=== PATIENT | male | born 1990 | race Caucasian/White ===

== ENCOUNTER → 2016-12-27 | Outpatient (CLI) | payer OTHER ==
[~2016-12-27] MED LIST: ADALAT CC60 MG PO; ADDERALL 10 MG10 MG PO; ADDERALL20 MG PO; ATIVAN0.5 MG PO; BACTROBAN CREAM15 GM PO; CARAFATE1 G1 PO; CIPRO500 MG PO; CLARITIN10 MG PO; CLINDAMYCIN HC300 MG PO; CLONIDINE0.2 MG PO; CORBAN MAGNESI400 MG PO; COREG12.5 M1 PO; CRESTOR5 MG PO; DELTASONE5 MG PO; DIFLUCAN100 MG PO; FERROUS SULFAT325 M1 PO; FLEXERIL10 MG PO; FOLIC ACID1 MG PO; GENTAMICIN3 MG/ML OP; GLIPIZIDE XL2.5 MG PO; GLUCOPHAGE500 MG PO; HYDRALAZINE10 MG PO; HYDROCODONE BIT1 T11 PO; HYZAAR 50/12.5M1 TAB PO; ISRADIPINE5 MG PO; K-DUR 20MEQ20 MEQ PO; KEPPRA500 MG PO; LASIX40 MG PO; LISINOPRIL10 MG PO; LISINOPRIL20 MG PO; MAGNESIUM OXID400 MG PO; MULTIVITAMIN1 CTB PO; MYFORTIC360 MG PO; Magnesium Oxid400 MG PO; NAPROSYN500 MG PO; NEXIUM40 MG PO; NIFEDIPINE ER60 MG PO; NIFEDIPINE60 MG PO; OSCAL,OYSTER S500 MG PO; PHOS LO667 MG PO; PRAVACHOL20 MG PO; PRAVACHOL40 MG PO; PREDNISONE10 MG PO; PREDNISONE25 MG PO; PREDNISONE5 MG PO; PREVACID30 M1 PO; PREVACID30 MG PO; PRILOSEC40 M1 PO; PROGRAF1 MG PO; PROGRAF5 MG PO; PROTONIX40 MG PO; RANITIDINE150 MG PO; REGLAN10 MG PO; RENA-VITE1 TAB PO; TRAMADOL HCL50 MG PO; TYLENOL325 M1 PO; VICODIN 5/500 505 MG PO; VITAMIN D1000 IU PO; VITAMIN D2000 IU PO; ZOFRAN ODT4 MG SL
== END | disposition home or self-care (01) ==
LOC: RAD 17:39
DX: J90 Pleural effusion, not elsewhere classified (principal); Z90.2 Acquired absence of lung [part of]

== ENCOUNTER 2017-02-07 19:07 | Emergency (ER) | payer OTHER ==
[~2017-02-07] VITALS: Ht 162.5 cm; Wt 65.8 kg
--- NOTE | ~2017-02-07 | EKG ---
[place], [place] ELECTROCARDIOGRAM REPORT NAME: JANICE COYLE UNIT #: [id number] ROOM: DOCTOR: DUTCH STANLEY MD BIRTHDATE: [birth year] DOS: 02/07/2017 TIME: 1926 hours. FINDINGS: 1. Normal sinus rhythm at rate 82 with first-degree AV block. 2. Right axis deviation with possible right ventricular hypertrophy. 3. RSR prime in V1 and V2. 4. Abnormal electrocardiogram. DUTCH STANLEY MD CM:EKGRPT:ELECTROCARDIOGRAM REPORT [id number] DUTCH STANLEY MD
[2017-02-07 19:45] LABS: BASO # 0.2 10*3/uL (0.0-0.1); BASO % 2.4 % (0.0-1.0); EOS # 0.1 10*3/uL (0.0-0.4); EOS % 0.6 % (1.0-4.0); HEMATOCRIT 43.3 % (42.0-52.0); HEMOGLOBIN 13.5 g/dl (14.0-18.0); LYMPH # 1.9 10*3/uL (1.3-4.4); LYMPH % 22.5 % (27.0-41.0); MEAN CORPUSCULAR HGB 29.6 pg (27.0-31.0); MEAN CORPUSCULAR HGB CONC 31.2 g/dl (33.0-37.0); MEAN PLATELET VOLUME 10.3 fl (9.6-12.3); MONO # 0.6 10*3/uL (0.1-1.0); MONO % 7.3 % (3.0-9.0); NEUT # 5.5 10*3/uL (2.3-7.9); NEUT % 66.8 % (47.0-73.0); PLATELET COUNT AUTOMATED 319 10*3/uL (130-400); RED BLOOD COUNT 4.56 10*6/uL (4.50-5.90); RED CELL DISTRI WIDTH 15.7 % (0-14.5); WHITE BLOOD COUNT 8.3 10*3/uL (4.8-10.8)
[2017-02-07] MEDS ORDERED: NYSTATIN100000 U/M PO (19:45)
[2017-02-07] MEDS ORDERED: PROVENTIL0.09 MG/A1 INH (19:47)
[2017-02-07 19:55] LABS: INTERNATIONAL NORM RATIO 1.4 (2.0-3.5); PROTHROMBIN TIME 14.8 SECONDS (9.0-12.4)
[2017-02-07 20:02] LABS: ALBUMIN 3.8 gm/dl (3.1-4.5); ALKALINE PHOSPHATASE 164 U/L (45-117); BILIRUBIN, TOTAL 0.6 mg/dl (0.2-1.0); BUN 36 mg/dl (7-24); C-REACTIVE PROTEIN 1.93 MG/DL (0-0.3); CARBON DIOXIDE 16 mmol/L (21-32); CHLORIDE 100 mmol/L (98-107); CPK 103 U/L (39-308); EST GLOM FILT AFRICAN AMERICAN 8 ml/min; MAGNESIUM 2.4 mg/dL (1.5-2.1); POTASSIUM 5.3 mmol/L (3.5-5.1); SGOT/AST 31 IU/L (3-35); SGPT/ALT 13 U/L (12-78); SODIUM 139 mmol/L (136-145); TOTAL PROTEIN 7.4 gm/dL (6.4-8.2)
[2017-02-07 20:05] LABS: GLUCOSE 84 mg/dL (65-99); TROPONIN I < 0.015 ng/ml (<0.045)
[2017-02-07] MEDS ORDERED: FLONASE ALLERG9.9 ML NAS (20:15)
[2017-02-07] MEDS ORDERED: CLARITIN10 MG PO (20:16)
[2017-02-07] MEDS ORDERED: APRESOLINE10 MG PO (20:18)
[2017-02-07 21:42] LABS: LA>2 REFLEX 2 HR DRAW NOW
== END 2017-02-07 22:30 | disposition short-term general hospital (02) ==
LOC: ED 19:07
PROVIDERS: Student in an Organized Health Care Education/Training Program
DX: R56.9 Unspecified convulsions (principal); F32.9 Major depressive disorder, single episode, unspecified; G40.909 Epilepsy, unspecified, not intractable, without status epilepticus; I12.0 Hypertensive chronic kidney disease with stage 5 chronic kidney disease or end stage renal disease; N18.6 End stage renal disease; E11.65 Type 2 diabetes mellitus with hyperglycemia; F17.200 Nicotine dependence, unspecified, uncomplicated; Z79.899 Other long term (current) drug therapy

== ENCOUNTER → 2017-04-04 | Outpatient (CLI) | payer OTHER ==
[~2017-04-04] MED LIST changes: +APRESOLINE10 MG PO; +FLONASE ALLERG9.9 ML NAS; +NYSTATIN100000 U/M PO; +PROVENTIL0.09 MG/A1 INH
== END | disposition home or self-care (01) ==
LOC: US 13:30
DX: S20.211A Contusion of right front wall of thorax, initial encounter (principal); X58.XXXA Exposure to other specified factors, initial encounter; Y93.89 Activity, other specified; Y92.89 Other specified places as the place of occurrence of the external cause; Y99.8 Other external cause status

== ENCOUNTER → 2017-09-21 | Outpatient (CLI) | payer OTHER | END | disposition home or self-care (01) | LOC: RAD 14:51 | DX: Q78.8 Other specified osteochondrodysplasias (principal) ==

== ENCOUNTER 2017-10-05 12:21 | Emergency (ER) | payer OTHER ==
[~2017-10-05] VITALS: Wt 68.0 kg
[2017-10-05] MEDS ORDERED: ATIVAN1 MG PO (12:47)
[2017-10-05] MEDS ORDERED: TRAMADOL HCL50 MG PO (12:47)
[2017-10-05] MEDS ORDERED: Ventolin 02.5 MG/3 M INH (12:48)
[2017-10-05] MEDS ORDERED: PROAIR HFA8.5 GM INH (12:49)
[2017-10-05] MEDS ORDERED: OMEPRAZOLE40 MG PO (12:50)
[2017-10-05] MEDS ORDERED: NIFEDICAL PO (12:50)
[2017-10-05] MEDS ORDERED: CARVEDILOL25 MG PO (12:50)
[2017-10-05] MEDS ORDERED: Magnesium Oxid400 MG PO (12:51)
[2017-10-05] MEDS ORDERED: CLONIDINE0.3 MG PO (12:51)
[2017-10-05] MEDS ORDERED: PRAVACHOL20 MG PO (12:51)
[2017-10-05] MEDS ORDERED: 24 HOUR ALLER15.8 ML NAS (12:53)
[2017-10-05] MEDS ORDERED: SINGULAIR10 M1 PO (12:53)
[2017-10-05] MEDS ORDERED: CALCIUM ACETAT667 M2 PO (12:54)
[2017-10-05] MEDS ORDERED: HYDRALAZINE HC100 MG PO (12:55)
[2017-10-05] MEDS ORDERED: LEVETIRACETAM500 MG PO (12:56)
[2017-10-05] MEDS ORDERED: LISINOPRIL40 MG PO (12:57)
[2017-10-05] MEDS ORDERED: PROMETHAZI6.25 MG/3 PO (12:57)
[2017-10-05 13:22] LABS: BASO # 0.2 10*3/uL (0.0-0.1); BASO % 2.9 % (0.0-1.0); EOS # 0.3 10*3/uL (0.0-0.4); EOS % 4.2 % (1.0-4.0); HEMATOCRIT 28.5 % (42.0-52.0); HEMOGLOBIN 9.2 g/dl (14.0-18.0); LYMPH # 1.5 10*3/uL (1.3-4.4); LYMPH % 21.5 % (27.0-41.0); MEAN CELL VOLUME 91.3 fl (80.0-94.0); MEAN CORPUSCULAR HGB 29.5 pg (27.0-31.0); MEAN CORPUSCULAR HGB CONC 32.3 g/dl (33.0-37.0); MEAN PLATELET VOLUME 8.7 fl (9.6-12.3); MONO # 0.7 10*3/uL (0.1-1.0); MONO % 9.8 % (3.0-9.0); NEUT # 4.2 10*3/uL (2.3-7.9); PLATELET COUNT AUTOMATED 458 10*3/uL (130-400); RED BLOOD COUNT 3.12 10*6/uL (4.50-5.90); RED CELL DISTRI WIDTH 15.9 % (0-14.5); WHITE BLOOD COUNT 6.9 10*3/uL (4.8-10.8)
[2017-10-05 13:39] LABS: ALBUMIN 3.3 gm/dl (3.1-4.5); CREATININE 8.05 mg/dL (0.70-1.30); POTASSIUM 4.2 mmol/L (3.5-5.1); TOTAL PROTEIN 7.6 gm/dL (6.4-8.2)
== END 2017-10-05 15:25 | disposition home or self-care (01) ==
LOC: ED 12:21
PROVIDERS: Emergency Medicine
DX: R18.8 Other ascites (principal); I12.0 Hypertensive chronic kidney disease with stage 5 chronic kidney disease or end stage renal disease; E11.22 Type 2 diabetes mellitus with diabetic chronic kidney disease; N18.6 End stage renal disease; G40.909 Epilepsy, unspecified, not intractable, without status epilepticus; E11.649 Type 2 diabetes mellitus with hypoglycemia without coma; Z79.899 Other long term (current) drug therapy; Z99.2 Dependence on renal dialysis; Z79.4 Long term (current) use of insulin

== ENCOUNTER → 2018-02-13 | Outpatient (CLI) | payer OTHER ==
[~2018-02-13] MED LIST changes: +24 HOUR ALLER15.8 ML NAS; +ATIVAN1 MG PO; +CALCIUM ACETAT667 M2 PO; +CARVEDILOL25 MG PO; +CLONIDINE0.3 MG PO; +HYDRALAZINE HC100 MG PO; +LEVETIRACETAM500 MG PO; +LISINOPRIL40 MG PO; +NIFEDICAL PO; +OMEPRAZOLE40 MG PO; +PROAIR HFA8.5 GM INH; +PROMETHAZI6.25 MG/3 PO; +SINGULAIR10 M1 PO; +Ventolin 02.5 MG/3 M INH
== END | disposition home or self-care (01) ==
LOC: US 06:30
DX: R10.12 Left upper quadrant pain (principal)

== ENCOUNTER → 2018-02-21 | Outpatient (CLI) | payer OTHER | END | disposition home or self-care (01) | LOC: NM 13:00 | DX: R11.0 Nausea (principal) ==

== ENCOUNTER 2018-05-06 17:45 | Inpatient (IN) | payer OTHER ==
[~2018-05-06] VITALS: Ht 165.1 cm; Wt 73.6 kg
--- NOTE | ~2018-05-06 | PR ---
[place], [place] PROGRESS NOTE NAME: JANICE COYLE UNIT #: [id number] ROOM: 415 DOCTOR: AVELINA KELLY DO BIRTHDATE: [birth year] DOS: 05/09/2018 SUBJECTIVE: The patient was seen and evaluated today. He was resting comfortably. Denies abdominal pain. Says his breathing is okay. He denies headache, double vision, chest pain, cough, abdominal pain, nausea, vomiting, diarrhea, hematemesis, hematochezia, melena. OBJECTIVE: VITAL SIGNS: Temperature 98.2, heart rate 72, respirations 18, blood pressure 136/80, pulse ox 98% on room air. HEENT: Head is atraumatic. Eyes nonicteric. NECK: Supple. CARDIOVASCULAR: S1, S2 audible. LUNGS: Decreased breath sounds on the left side. Right lung has mild decrease in breath sounds at the bases. Right lung is clear. ABDOMEN: Improvement in the distention. Fluid wave is present. EXTREMITIES: No acute edema. MUSCULOSKELETAL: No acute deformities. CENTRAL NERVOUS SYSTEM: Cranial nerves 2-12 intact. SKIN: No obvious lesions or rashes. LABORATORY DATA: CBC from today: WBC 4.5, hemoglobin 9.8, hematocrit 30.5, platelet count 328,000. CMP today, sodium 137, potassium 4.4, chloride 98, CO2 of 31, BUN 29, creatinine 8.27. He is due for dialysis today. AST 13, ALT 7, alkaline phosphatase 112. Albumin today is 2.4. Chest x-ray yesterday showed a large left pleural fluid. IMPRESSION: 1. Persistent large pleural effusion after paracentesis. 2. Ascites. 3. End-stage renal failure, on hemodialysis. 4. History of focal segmental glomerulosclerosis. 5. Gastritis. 6. Hiatal hernia. PLAN AND MANAGEMENT: Antibiotics have been discontinued as spontaneous bacterial peritonitis was excluded. Ultrasound performed at bedside showed a large pleural effusion on the left. Thoracentesis was performed at the bedside with a total of 1300 mL of pleural fluid out. Pleural fluid was sent for analysis. Continue all other current management at this time. GI is following the patient's abdominal complaints. Any changes in treatment plan will be arranged following results of testing. Avelina Kelly DO [place], [place] PROGRESS NOTE NAME: JANICE COYLE UNIT #: [id number] ROOM: [facility] DOCTOR: AVELINA KELLY DO BIRTHDATE: [birth year] OSORIO TROY MD CM:PNKELY [id number] AVELINA KELLY DO 05/10/18 0240 interface
--- NOTE | ~2018-05-06 | CON ---
[place], [place] REPORT OF CONSULTATION NAME: JANICE COYLE UNIT #: [id number] ROOM: 415 DOCTOR: OSORIO LABOY MD BIRTHDATE: [birth year] DOS: 05/07/2018 PULMONARY CONSULTATION EVALUATION This is a pulmonary addendum note. The patient was independently seen and examined in a [id number] encounter with the date of 05/07/2018. History was taken. Physical examination performed. The labs were reviewed. The assessment and management on today's note was completed personally in today's visit. The note done by the medical scheduler and approved as well. CONSULTATION REQUESTED BY: Dr. Red Lester. REASON FOR CONSULTATION: For the assessment of the pleural fluid on the left side. HISTORY OF PRESENT ILLNESS: This is a 27-year-old male patient noted extremely poor historian. The patient does not remember much of his symptoms, only complained by the patient was described as diffuse abdominal pain, which has been noted with gradual increased abdominal distention. The patient had been admitted to the hospital for further medical management. He has not been noted with any symptoms of chest pain. REVIEW OF SYSTEMS: Completed by the medical scheduler, reviewed, refer to that. PAST MEDICAL HISTORY: 1. The patient was known with end-stage renal failure on hemodialysis every Sunday, and Saturdays. 2. Anemia of chronic kidney disease. 3. History of bronchial asthma, severity unknown. 4. History of depression. 5. 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 6. History of focal segmental glomerulosclerosis. 7. Type 2 diabetes mellitus. 8. Essential hypertension. 9. Seizure disorder. 10. History reported for pulmonary hypertension on echocardiogram. PAST SURGICAL HISTORY: The patient noted as VATS procedure that was done on the right side in [facility]. The patient's medical record personally reviewed. It was noted nonmalignant with a significant amount of lymphocytes. The patient noted with chronic inflammatory changes without any evidence of malignancy. The surgery was done for the patient in [facility] on 12/12/2017 as well as the pleurodesis was done for that as well. Chest tube insertion that was done on 12/11/2017 for the large right pleural effusion. Creation of fistula for the hemodialysis. SOCIAL HISTORY: The patient has not reported any history of tobacco, alcohol or [place], [place] REPORT OF CONSULTATION NAME: JANICE COYLE UNIT #: [id number] ROOM: 415 DOCTOR: WOODROW LAIRD MD,OSORIO BIRTHDATE: [birth year] illicit drug use in the past, not . FAMILY HISTORY: The patient reported for diabetes, hypothyroidism, and essential hypertension. MEDICATIONS: Current medications administered noted use of Keppra, folic acid, calcium acetate, Flonase, lisinopril, simvastatin, albuterol sulfate with nebulizer t.i.d., omeprazole, nifedipine, minoxidil, hydralazine, Singulair, clonidine, Coreg, Dulera, DuoNeb and other p.r.n. medications. DRUG ALLERGIES: The patient was noted as allergies: 1. EFFEXOR. 2. WELLBUTRIN. 3. ZOLOFT. 4. CELEXA. PHYSICAL EXAMINATION: GENERAL: This is a 27-year-old male patient who is currently sitting on his bed without acute distress this morning of assessment. Height of 5 feet 5 inches, weight 262 pounds, BMI 27. VITAL SIGNS: For the patient which were recorded showed normal temperature, respiratory rate 18-20, heart rate 77-83, blood pressure 138/81-141/81. Pulse oxygen saturation of the patient on room air 97% saturation. HEENT: Shows head was atraumatic, palor noted of the face. NECK: Supple. CARDIOVASCULAR: S1, S2 audible. LUNGS: Clear breath sounds noted in the right side with a severe reduced breath sounds noted in the mid to lower portion of the large left lung. There were no crackles or wheezing heard. ABDOMEN: Noted with obesity and ascites. Superficial tendon noted. Bowel sounds are present. EXTREMITIES: Noted with chronic changes. SKIN: No lesions or rashes. CENTRAL NERVOUS SYSTEM: Limited. SKIN: No focal deficit. MUSCULOSKELETAL: No deformity. LABORATORY DATA: CBC was done yesterday on admission, normal WBC count, hemoglobin 10.4, platelet count were normal. PT/PTT were noted, INR 1.3, PTT 37. CMP that was done on 05/06/2018, BUN 35, creatinine 8.82. CBC that was done this morning essentially remains unchanged since yesterday. The PTT, PT, INR was noted 1.3. CMP this morning, BUN 38, creatinine 9.23. Ultrasound of the abdomen was completed this morning was reported by the radiologist report as moderate to large intra-abdominal ascites. The patient noted with a pleural fluid as well. End-stage renal failure findings were noted of kidneys with the decreased echogenicity. Chest x-ray noted with moderate to large left pleural fluid noted. Right lung appear to be clear of any acute infiltration. Lower portion CT of the thorax was also assessed with a CT scan of the abdomen and pelvis, which was done in this patient was noted with findings of abdominal ascites with moderate to large left pleural fluid, patient was also noted with [place], [place] REPORT OF CONSULTATION NAME: JANICE COYLE UNIT #: [id number] ROOM: 415 DOCTOR: OSORIO LABOY MD BIRTHDATE: [birth year] compression atelectasis, minimal right pleural fluid was noted. IMPRESSION: 1. The patient will be currently admitted to the hospital noted progressive ascites, abdominal pain, rule out spontaneous bacterial peritonitis. Etiology is ascites, who is unclear at this time related to liver problems or other etiologies to be considered. 2. The patient with incidental finding of a large left pleural fluid with possibility of pleural fluid, which has been tracking from the ascites with left fragment effect. He would be considered in differential diagnosis with other primary cause of pleural fluid be considered as a transudative and exudative effusions. The patient has been noted with lymphocyte predominant pleural fluid in the right side, underwent VATS procedure. Successful resolution of the pleural formation on the right side in 11/2017 in [facility]. 3. History of focal segmental glomerulosclerosis. 4. End-stage renal failure, hemodialysis as well. 5. History of bronchial asthma without evidence of acute exacerbation. 6. Mild coagulopathy related to the liver dysfunction. PLAN OF MANAGEMENT: The patient will be ordered for paracentesis. The patient to rule out SBP empirical treatment, antibiotic will be recommended. After ascitic fluid removed, it will be analyzed for malignancy and other reasons as well. The pleural fluid deferred at this time until the ascites improves. If necessary, the patient could have either thoracentesis or chest tube insertion, but most likely may require another surgical intervention to be done in another hospital with the help of surgery as video-assisted thoracoscopy. Other supportive therapy, plan of management at this time to be continued. Other supportive plan of treatment is ordered as in progress will be continued. Usual care and other plan of therapies and care. OSORIO TROY MD CM:CONSTR:REPORT OF CONSULTATION 1225 06/21/18 0742 interface
--- NOTE | ~2018-05-06 | PROC NOTE ---
[place], [place] PROCEDURE NOTE NAME: JANICE COYLE UNIT #: [id number] ROOM: 415 DOCTOR: WOODROW LAIRD MD,OSORIO BIRTHDATE: [birth year] DOS: 05/09/2018 PROCEDURE: Left thoracentesis, ultrasound guidance. PREOPERATIVE DIAGNOSIS: Large left pleural effusion. POSTOPERATIVE DIAGNOSIS: Removal of 1300 mL pleural fluid left pleural space without any difficulty. COMPLICATIONS: None. PROCEDURE DESCRIPTION: Informed consent obtained for the patient. The patient was placed in sitting position. The ultrasound of the chest was already performed. The site of thoracentesis after marking the site of thoracentesis, left posterior chest wall. Skin was cleaned with chlorhexidine solution. Local anesthetic was administered in the skin intercostal space. During admission of local anesthetic, a small amount of fluid was aspirated. After that small incision given in the skin. [place] thoracentesis catheter introduced in the incision into the pleural space. The pleural fluid was obtained with initial sample about 50 mL, remaining fluid was drained in the vacuum bottle. A total of 1300 mL pleural fluid was collected. Fluid appeared to be mildly romario colored. Procedure well tolerated by the patient. Chest x-ray done postprocedure does have a pneumothorax with small residual area of atelectasis with possibility of remaining small left pleural effusion as well. Pleural fluid sent for all the appropriate testing. OSORIO TROY MD CM:PROCNOTE:PROCEDURE NOTE [id number] OSORIO LAIRD MD
--- NOTE | ~2018-05-06 | CON ---
[place], [place] REPORT OF CONSULTATION NAME: JANICE COYLE UNIT #: [id number] ROOM: 415 DOCTOR: ALLY COFFEY MD BIRTHDATE: [birth year] DOS: 05/08/2018 GASTROENDOSCOPIC CONSULTATON HISTORY OF PRESENT ILLNESS: This is a 27-year-old patient who has presented with multiple medical problems, among which has been his pleural effusion; ascites; and dialysis dependency on Sunday, , Saturdays; abdominal distention obviously; and GI symptomatology of nausea and vomiting postprandially and I have been asked for assessment of the patient in this regard. PAST MEDICAL HISTORY: Associated with chronic renal disease, bronchitis, depression, diabetes mellitus, hypertension, seizure disorder, pleural effusion, ascites formation as new findings, hypercholesterolemia as well as systemic hypertension. PAST SURGICAL HISTORY: History of VATS, history of fistulas in the arm for dialysis. SOCIAL HISTORY: Nonsmoker, nonalcohol consumer. FAMILY HISTORY: Hypothyroidism and diabetes. ALLERGIES: WELLBUTRIN, EFFEXOR, ZOLOFT, AND CELEXA. MEDICATIONS: List reviewed. The patient has been on PPI therapy. REVIEW OF SYSTEMS: HEENT: Denies double vision, blurred vision. RESPIRATORY: Denies acute shortness of breath; however, chronically short of breath. CARDIOVASCULAR: Denies chest pain. DIGESTIVE SYSTEM: Nausea and vomiting postprandially. Ascites formation. PHYSICAL EXAMINATION: HEENT: Head normocephalic, nontraumatic. Eyes: Pupils round, reactive. Sclerae nonicteric. Conjunctivae pink. Mouth and buccal mucosa benign, old characteristics of chronic renal disease the patient. NECK: Supple, no thyromegaly. CHEST: Symmetric anatomy, equal expansion, reduced air entry in general. HEART: Normal sinus rhythm, no gallop, no murmur. ABDOMEN: Evidence of ascites. Bowel sounds present. No pulsatile mass. No hepato-organomegaly can be elicited. EXTREMITIES: No cyanosis, no pedal edema in the lower extremity; however, upper extremity fistula adverse effect with a venous engorgement on the surface of skin can be seen. NEUROLOGIC: Alert, oriented to time, place, person. Sensory, motor intact. Cranial nerves 2-12 intact. LABORATORY AND DIAGNOSTIC DATA: Her last chest x-ray, showed a left pleural [place], [place] REPORT OF CONSULTATION NAME: JANICE COYLE UNIT #: [id number] ROOM: 415 DOCTOR: ALEXX GOLDBERG,ALLY BIRTHDATE: [birth year] effusion, multiple small sclerotic densities suspected in the bones. Comprehensive metabolic panel: Creatinine 6.3. Dialysis dependence. Electrolytes balanced. Protein and albumin low at 5.8 and 2.5 respectively. Blood cultures, body fluid, many white blood cells. CBC: White blood cell 5, H and H of 10 and 31, platelet count 300+. All has been noticed. Amylase less than 3. Ultrasound paracentesis has been removed already more than 6400 mL of fluid from the left lung. CT scan of the abdomen and pelvis has been reviewed. IMPRESSION: Generalized anasarca, diffuse gastric and small bowel wall thickening, pleural effusion that we knew about and numerous sclerotic lesions throughout the skeleton as noticed. Hemoglobin A1c less than 3.5 and this patient has initial H and H on admission and 31. PLAN AND DISCUSSION: Abnormal CT scan of the abdomen and gastric pouch with presence of ascites in addition to thickening of the gastric pouch in addition to symptomatology of nausea and vomiting postprandial. Therefore, we are going to consider EGD for him today. OTHER ADJUNCTIVE DIAGNOSES: As outlined, past medical and surgical history and we will comment after endoscopy is done and biopsies obtained. ALLY COFFEY MD CM:CONSTR:REPORT OF CONSULTATION 1057 05/22/18 0714 interface
--- NOTE | ~2018-05-06 | PR ---
[place], [place] PROGRESS NOTE NAME: JANICE COYLE UNIT #: [id number] ROOM: 415 DOCTOR: AVELINA KELLY DO BIRTHDATE: [birth year] DOS: 05/08/2018 SUBJECTIVE: The patient was seen and evaluated today. He was resting comfortably in bed. He did have paracentesis performed yesterday to rule out SBP. He also was dialyzed yesterday. He minimally engages in conversation, but reports no complaints at this time. He denies any symptoms of headache, lightheadedness, chest pain, shortness of breath, abdominal pain, nausea, vomiting or diarrhea. He states that he is feeling better. OBJECTIVE: VITAL SIGNS: Temperature 98.3, heart rate 81, respirations 20, blood pressure 132/74, pulse ox is 96% on room air. HEENT: Head is atraumatic. Eyes nonicteric. NECK: Supple. CARDIOVASCULAR: S1, S2 is audible. Systolic murmur present. LUNGS: Diminished breath sounds on the left. Lungs are clear to auscultation. ABDOMEN: Fluid wave much decreased from yesterday. Not as distended. No tenderness on palpation. Bowel sounds present. EXTREMITIES: No acute edema. SKIN: Visible skin, no lesions or rashes. CENTRAL NERVOUS SYSTEM: Cranial nerves 2-12 intact. LABORATORY DATA: CBC: White blood cells 5.2, hemoglobin 10, hematocrit 31, platelet count 358,000. CMP: Sodium 137, potassium 3.7, creatinine 6.36, BUN 22, alkaline phosphatase 123. AST 9, ALT is below the reference range. Albumin 2.5. INR 1.3 on yesterday's coagulation studies. 6450 mL of fluid was drained yesterday during paracentesis. PMNs were 17. IMPRESSION: 1. Abdominal ascites. PMN 17, which is not consistent with spontaneous bacterial peritonitis. 2. Left pleural fluid. 3. History of focal segmental glomerulosclerosis. 4. End-stage renal failure, on hemodialysis. 5. Bronchial asthma without evidence of acute exacerbation. 6. Mild coagulopathy related to liver dysfunction. PLAN OF MANAGEMENT: Paracentesis has been consistent with SBP. Chest x-ray ordered to determine if peritoneal fluid was secondary to ascites or there is a second primary process. The chest x-ray does reveal continuing left-sided pleural effusion. Thoracentesis can be arranged to determine if this is a transudative or exudative process. Continue supportive management at this time. Avelina Kelly DO [place], [place] PROGRESS NOTE NAME: JANICE COYLE UNIT #: [id number] ROOM: [facility] DOCTOR: AVELINA KELLY DO BIRTHDATE: [birth year] OSORIO TROY MD CM:GREG [id number] AVELINA KELLY DO 05/08/18 2335 interface
--- NOTE | ~2018-05-06 | PR ---
[place], [place] PROGRESS NOTE NAME: JANICE COYLE UNIT #: [id number] ROOM: 415 DOCTOR: WOODROW LAIRD MDOSORIO BIRTHDATE: [birth year] DOS: 05/08/2018 SUBJECTIVE: The patient is independently seen and examined in [id number] encounter. History was confirmed. Physical examination performed. The labs for the patient reviewed, but assessment and management was personally completed as well. The note done by the medical equipment repair technician was approved as well. The patient has been noted with reduction in shortness of breath, but the resolution noted incomplete. There were no symptoms of coughing reported. Denies any further abdominal pain, underwent paracentesis yesterday that was completed successfully The patient was noted without any other acute distress and will be undergoing the EGD for the patient to be done by the filler leaf cutter long today as well. He has not been reported any symptoms of pain of the lower extremity. Denies symptoms of dizziness and headache. Remaining systems were reviewed. They were noted all negative. OBJECTIVE: VITAL SIGNS: Normal temperature, respiratory rate 20, heart rate 84, blood pressure 134/85-142/79. Pulse oxygen saturation on room air was 96% saturation. HEENT: Examination shows head was atraumatic. Eyes nonicterus. NECK: Supple. CARDIOVASCULAR: S1, S2 audible. LUNGS: Noted with decreased breaths in the left side of the right lung was noted. Right lung was noted clear. ABDOMEN: Noted significant improvement in the distention from the ascites. EXTREMITIES: Noted without any acute edema. MUSCULOSKELETAL: Without any acute deformities. CENTRAL NERVOUS SYSTEM: Cranial nerves 2-12 intact. SKIN: No lesions or rashes. LABORATORY DATA: The patient's CBC today, hemoglobin 10, WBC count normal, platelet count was normal. CMP of the patient of 725, BUN 22, creatinine 6.36. Albumin of 2.5. IMPRESSION: Chest x-ray that was obtained today shows large left pleural fluid noted with increase of the patient as previously. IMPRESSION: 1. The patient with persistent large pleural fluid after paracentesis, primary pleural problem would be considered. 2. The patient with ascites, which was also noted at this time, which has been further assessed for this patient. 3. The patient with end-stage renal failure on hemodialysis as well. 4. History of focal segmental glomerulosclerosis history as well. PLAN OF MANAGEMENT: The patient will be considered for patient possibility of chest tube insertion and may require the video-assisted thoracoscopy on the left side as well. Further assessment that will be decided after the chest tube placement and drainage of the pleural fluid. Other supportive therapy, plan of management to be continued. Usual care. Other additional treatment changes to [place], [place] PROGRESS NOTE NAME: JANICE COYLE UNIT #: [id number] ROOM: [facility] DOCTOR: OSORIO LABOY MD BIRTHDATE: [birth year] be made based on progression of the illness. Usual care, other supportive plan of management and therapy, plan of care. More than 6000 fluid removed with paracentesis yesterday. Culture of the peritoneal fluid was noted no bacterial growth. The Gram stain noted many white blood cells and no organisms. OSORIO TROY MD CM:PNTRANS [id number] OSORIO LAIRD MD 06/21/18 0746 interface
--- NOTE | ~2018-05-06 | PR ---
[place], [place] PROGRESS NOTE NAME: JANICE COYLE UNIT #: [id number] ROOM: 415 DOCTOR: WOODROW LAIRD MDOSORIO BIRTHDATE: [birth year] DOS: 05/09/2018 SUBJECTIVE: The patient is seen and examined on 05/09/2018, still noted comfortable at this time. Denies any abdominal pain. The patient denies symptoms of chest pain or hemoptysis. Denies any edema, pain in lower extremity. Chest x-ray that was done yesterday shows large pleural fluid on the left side that remained persistent after the previous paracentesis. The patient was independently seen and examined for today's encounter. Physical examination performed. History was confirmed. Labs were reviewed. Assessment and management for the patient today was personally completed. The review of systems otherwise completed and were noted negative. PHYSICAL EXAMINATION: VITAL SIGNS: Normal temperature, respiratory rate 20, heart rate 73, blood pressure 116/72-120/76. Pulse oxygen saturation of the patient recorded on room air 98% saturation. HEENT: Head was atraumatic. Eye nonicterus. NECK: Supple. CARDIOVASCULAR: S1, S2 is audible. LUNGS: Absent breaths in the left chest auscultation. Right chest auscultation noted clear. There were no wheezing or crackles. ABDOMEN: Soft, nontender. Bowel sounds present. EXTREMITIES: The patient was noted without any acute edema. VISIBLE SKIN: No lesions or rashes. CENTRAL NERVOUS SYSTEM: Cranial nerves 2-12 intact. MUSCULOSKELETAL: No deformities. LABORATORY DATA: CMP today: BUN 29 and creatinine 8.27. Remaining CMP for the patient with a total protein mildly decreased 5.6 and albumin 2.4. CBC: WBC count 4.5, hemoglobin 9.8, hematocrit 30.5, and normal platelet count. IMPRESSION: 1. The patient with a large pleural fluid noted on the left side, etiology to be determined with further assessment. Consideration for thoracentesis. 2. Leukopenia and mild anemia consider underlying liver issue. 3. Ascites, which was tapped for this patient without any evidence of spontaneous bacterial peritonitis. 4. End-stage renal failure, on hemodialysis. 5. History of focal segmental glomerulonephritis. PLAN OF MANAGEMENT: Discontinue the antibiotics and see diagnosis of spontaneous bacterial peritonitis is excluded. Continuation of the plan of therapy as well. Thoracentesis was planned to be done at the bedside. After performing the ultrasound today shows large volume of pleural fluid in the left pleural space. Other therapy, plan of management changes to be made based on progression of the illness and after thoracentesis as necessary. [place], [place] PROGRESS NOTE NAME: JANICE COYLE UNIT #: [id number] ROOM: [facility] DOCTOR: OSORIO LABOY MD BIRTHDATE: [birth year] OSORIO TROY MD CM:PNKELY [id number] OSORIO LAIRD MD 06/21/18 0748 interface
--- NOTE | ~2018-05-06 | EKG ---
[place], [place] ELECTROCARDIOGRAM REPORT NAME: JANICE COYLE UNIT #: [id number] ROOM: 415 DOCTOR: GOOD DRAFT REPORT BIRTHDATE: [birth year] [facility] Test Date: 2018-05-06 Test Time: 19:13:12 Pat Name: JANICE COYLE Department: Room: 415 2 Gender: M Cableman: : 1990 Requested By: ESTEVAN NULL Order Number: [id number] Reading MD: Fredy Issa MD Measurements Intervals [place] Rate: 76 P: 50 AR: 245 QRS: 105 QRSD: 103 T: 48 QT: 401 QTc: 451 Interpretive Statements Sinus rhythm Prolonged AR interval Left atrial enlargement Borderline low voltage, extremity leads Consider right ventricular hypertrophy Baseline wander in lead(s) I,aVL,V3 Electronically Signed On 05-06-2018 19:26:30 PDT by Fredy Issa MD CM:EKGRPT:ELECTROCARDIOGRAM REPORT 12 25 ESTEVAN YOUNG DRAFT REPORT ESTEVAN NULL DO
--- NOTE | ~2018-05-06 | PR ---
[place], [place] PROGRESS NOTE NAME: JANICE COYLE UNIT #: [id number] ROOM: 415 DOCTOR: AVELINA ESPINOSA DO BIRTHDATE: [birth year] DOS: 05/10/2018 SUBJECTIVE: The patient was seen and evaluated today. He was resting comfortably in bed. He denies any further symptoms of abdominal pain or shortness of breath. He denies any pain at the site of the thoracentesis. He additionally denies any lightheadedness, chest pain, nausea, vomiting, hemoptysis, hematemesis or hematochezia. He is feeling well and has no complaints at this time. PHYSICAL EXAMINATION: VITAL SIGNS: Temperature 97.7, heart rate 83, respirations 20, blood pressure 128/68, pulse ox is 97% on room air. HEENT: Head is atraumatic. Eyes nonicteric. NECK: Supple. CARDIOVASCULAR: S1, S2 audible. LUNGS: Diminished breath sounds on the left involving approximately the lower one-third of the left lung. Upper portion of the lung is clear to auscultation. Right lung is clear to auscultation. ABDOMEN: Soft, nontender. Bowel sounds are present. Fluid wave is present and remains small. EXTREMITIES: No acute edema. VISIBLE SKIN: No lesions or rashes. CENTRAL NERVOUS SYSTEM: Cranial nerves 2-12 grossly intact. No focal deficit. MUSCULOSKELETAL: No acute deformities noted. LABORATORY DATA: CBC today, white blood cells 4.4, hemoglobin 10.1, hematocrit 31.1, platelet count 349,000. BMP today, sodium 140, potassium 3.9, chloride 100, CO2 of 30, BUN 16, creatinine 6.18. Albumin today is 2.6. Results from the pleural fluid collected yesterday reveal a pleural fluid protein to serum protein ratio of 0.517 consistent with an exudative pleural effusion. White blood cell count in the pleural fluid is 312. IMPRESSION: 1. Exudative pleural effusion on the left. 2. Leukopenia and mild anemia due to underlying liver disease. 3. Ascites. No evidence of spontaneous bacterial peritonitis. 4. End-stage renal failure, on hemodialysis. 5. History of focal segmental glomerulosclerosis. 6. Diastolic congestive heart failure. Echocardiogram performed 05/09/2018 showed moderate concentric left ventricular hypertrophy, flattening of the intraventricular septum consistent with right ventricular overload, grade 2 pseudonormal filling dynamics, bilateral moderate dilation of the atria, mild tricuspid regurgitation, and normal systolic function. PLAN OF MANAGEMENT: Antibiotics have been discontinued as SBP has been ruled out. Pleural fluid has been sent for acid fast studies. The patient may be discharged to home. He is to follow up with Dr. Troy in the office in 2 weeks for results of the fluid analysis. He may ultimately require a VATS procedure. This will be determined based on whether or not the fluid re-accumulates. [place], [place] PROGRESS NOTE NAME: JANICE COYLE UNIT #: [id number] ROOM: [facility] DOCTOR: AVELINA ESPINOSA DO BIRTHDATE: [birth year] Avelina Espinosa DO OSORIO TROY MD CM:GREG [id number] AVELINA ESPINOSA DO 05/10/18 1506 interface
--- NOTE | ~2018-05-06 | PR ---
[place], [place] PROGRESS NOTE NAME: JANICE COYLE UNIT #: [id number] ROOM: 415 DOCTOR: WOODROW LAIRD MDOSORIO BIRTHDATE: [birth year] DOS: 05/10/2018 SUBJECTIVE: The patient was independently seen and examined on 05/10/2018 personally. History was also taken from the patient. Physical examination performed. The labs were reviewed. Recommendation about the management for the patient, no other changes were personally made for today's visit. Note done by outside medical sales representative approved. The patient made comfortable, has a large volume of pleural fluid drained yesterday from the left hemithorax without difficulty and without any complications. He has been currently comfortably sitting on the bed at this time. The patient was not noted any symptoms of chest pain or any acute hemoptysis. OBJECTIVE: VITAL SIGNS: Normal temperature, respiratory rate 20, heart rate 83, blood pressure 128/68-145/88. The pulse oxygen saturation on room air 97% saturation. HEENT: Head was atraumatic. Eye, nonicterus. NECK: Supple. CARDIOVASCULAR: S1, S2 is audible. LUNGS: Without any wheeze or crackles. Decreased breath sounds in the left lower lung. ABDOMEN: Soft, nontender. EXTREMITIES: Without any acute changes. LABORATORY DATA: CBC, WBC count 4.4, hemoglobin 10, platelet count normal. LDH yesterday was 217. Analysis of pleural fluid was noted with 312 WBC and 70% lymphocytes. Glucose was noted 80. Body fluid protein noted at 2.9 and albumin 1.5. Cholesterol less than 50. IMPRESSION: Lymphocyte predominant, exudate pleural fluid with pending cytology. The culture was noted no bacterial growths. The patient with a large pleural fluid on the left side, which has been removed, thoracentesis at this time. End-stage renal failure, hemodialysis with history of glomerulosclerosis known as well. PLAN OF MANAGEMENT: The patient could be discharged home. At this time, acid-fast smear culture of the pleural fluid was ordered because of lymphocyte predominant. Followup office visit will be scheduled in a couple of weeks post-discharge to reassess the pleural fluid formation, if the patient will be noted recurrence of pleural fluid. He will be referred for surgical intervention for the VATS procedure and chemical pleurodesis. [place], [place] PROGRESS NOTE NAME: JANICE COYLE UNIT #: [id number] ROOM: [facility] DOCTOR: OSORIO LABOY MD BIRTHDATE: [birth year] OSORIO TROY MD CM:PNTRANS [id number] OSORIO LAIRD MD 06/21/18 0751 interface
--- NOTE | ~2018-05-06 | O ---
[place], [place] OPERATIVE NOTE NAME: JANICE COYLE UNIT #: [id number] ROOM: 415 DOCTOR: ALEXX GOLDBERGALLY BIRTHDATE: [birth year] DOS: 05/08/2018 HISTORY OF PRESENT ILLNESS: This is a 27-year-old patient who has undergone investigation for nausea, vomiting, abnormal CT scan of the abdomen and complex history of renal disease, dialysis dependency. PAST MEDICAL HISTORY: Associated pancreatitis, congestive heart failure, depression, chronic dialysis, diabetes mellitus, hypertension and seizure disorder. PROCEDURE: Today's procedure part of investigation panendoscopy plus biopsy. PREMEDICATION: Propofol. SCOPE: Olympus forward-viewing gastroscope Q10 video. REPORT: After putting the patient in left lateral position and application of lubricant to the scope, the scope was introduced. Thereafter, under direct visualization, advanced through the length of esophagus without difficulty. Small hiatal hernia was noticed. Gastric pouch was entered. Gastritis seen. Antral biopsy was obtained. Duodenal bulb, second and third part inspected. Some duodenitis was noticed. Air was suctioned out. The patient was extubated, tolerated the procedure well. IMPRESSION: Gastritis, duodenitis, otherwise no acute obstructive pathology. PLAN AND DISCUSSION: We have to believe that there is element of uremic gastropathy in this patient secondary to his chronic renal failure, focal glomerulosclerosis. PLAN AND DISCUSSION: The patient already on PPI. We are going to continue with Zofran p.r.n. I am thinking of providing him with 5 mg of Reglan a.c. dinner, concern of possible side effects with this complex of diseases that he has pleural effusion, ascites and anasarca and complex issues, so we will try to remain conservative and supportive on management. After his acute symptomatology is over, then we may try a dose of 2.5 mg of Reglan to see if he tolerates and adjust to 5 mg to improve his gastrointestinal motility and therefore his nausea is going to be helped. This patient's endoscopy report was completed. His paracentesis fluid has been evaluated. He had a greater than 500 white blood cell in the paracentesis. His fluid has been sent for culture and sensitivity in case there has been evidence of spontaneous bacterial peritonitis. We are treating the white blood cell at the present time without having bacteria; however, it does make sense because this patient has pleural effusion as well as ascites fluid as well as chronic renal failure and dialysis dependency. We are cautious to make sure we are a step ahead. Rocephin 2 gram is going to be given after the time that we find the cultures of the peritoneal fluid availability. We are also organizing an echocardiogram to make sure that we do not have involvement of left ventricular low ejection fraction to be contributor to all his fluid collections in his [place], [place] OPERATIVE NOTE NAME: JANICE COYLE UNIT #: [id number] ROOM: 415 DOCTOR: ALEXX GOLDBERG,ALLY BIRTHDATE: [birth year] lungs and his abdomen and his anasarca. This is particularly of interest to previous history of pericardial effusion. Workup is in progress. Should the peritoneal fluid be free of bacteria, then we will be safe to discontinue the antibiotic therapy. Thank you very much indeed for your kind referral. ALLY COFFEY MD CM:OPRECORD:OPERATIVE NOTE [id number] ALLY COFFEY MD 05/08/18 1223 interface
--- NOTE | ~2018-05-06 | CON ---
[place], [place] REPORT OF CONSULTATION NAME: JANICE COYLE UNIT #: [id number] ROOM: 415 DOCTOR: AVELINA ESPINOSA DO BIRTHDATE: [birth year] DOS: 05/07/[address] Lester. REASON FOR CONSULTATION: Large left pleural effusion. HISTORY OF PRESENTING ILLNESS: The patient presented to the hospital as a direct admission from his primary care physician's office for evaluation of nausea, abdominal pain and abdominal distention. He admits to diffuse abdominal pain. Per history and physical, this has been occurring over the past few months with increasing abdominal distention and nausea with eating. The patient does have a history of FSGS and is dialyzed on Tuesdays, and Saturdays. He was noticed with ascites at his dialysis appointment. Per previous documentation, the patient does have a history of alcohol use. REVIEW OF SYSTEMS: CONSTITUTIONAL SYMPTOMS: He reports fatigue. Denies fevers or chills. EYES: Denies any burning, redness or tenderness. EARS, NOSE, THROAT SYMPTOMS: Denies sore throat, hoarseness, otalgia, postnasal drainage or epistaxis. CARDIOVASCULAR: Denies any chest pain, pain in the lower extremities. RESPIRATORY: Admits to cough, denies sputum, wheezing or shortness of breath. GASTROINTESTINAL: Admits to abdominal pain, nausea. Denies vomiting, diarrhea, constipation, hematemesis, melena or hematochezia. GENITOURINARY: He is anuric at baseline, on chronic hemodialysis. MUSCULOSKELETAL: Denies pain in the joints. Admits to edema. SKIN: Denies any abnormal lesions or rashes. CENTRAL NERVOUS SYSTEM: Denies any dizziness, lightheadedness, headache or gait abnormalities. PREVIOUS MEDICAL HISTORY: Significant for anemia of chronic disease, asthma, congestive heart failure, chronic back pain, coagulopathy, depression, dialysis dysequilibrium syndrome; end-stage renal disease, on dialysis, focal segmental glomerulosclerosis, diabetes, hypertension, osteopoikilosis, pulmonary hypertension, pulmonic regurgitation, seizure disorder, tricuspid regurgitation. PREVIOUS SURGICAL HISTORY: Include colonoscopy, EGD, VATS procedure in 2017 and placement of an AV fistula. SOCIAL HISTORY: Admits to alcohol and tobacco use. FAMILY HISTORY: His father is in long-term. His mother is healthy. He estimates that both parents' ages are 46-47. MEDICATIONS: Calcium acetate, carvedilol, Rocephin, clonidine, Flonase, folic acid, hydralazine, Keppra, lisinopril, Ativan, minoxidil, Dulera, Singulair, Procardia, Prilosec, Percocet, Zocor, Ultram and other p.r.n. medications. ALLERGIES: SERTRALINE, BUPROPION, CITALOPRAM, AND VENLAFAXINE. [place], [place] REPORT OF CONSULTATION NAME: JANICE COYLE UNIT #: [id number] ROOM: [facility] DOCTOR: AVELINA ESPINOSA DO BIRTHDATE: [birth year] PHYSICAL EXAMINATION: VITAL SIGNS: Temperature 97.9, heart rate 70, respirations 20, blood pressure 132/70, pulse ox 96% on room air. GENERAL APPEARANCE: He is awake, alert and responsive. He appears in moderate distress due to abdominal pain. HEAD: Normocephalic, atraumatic. EYES: No lesions, nonicteric. ENT: No lesions, no scars or masses. Poor dentition is noted. NECK: Supple. CARDIOVASCULAR: S1, S2 audible. Systolic murmur present. Trace edema bilateral lower extremities. LUNGS: Breath sounds are clear. Lungs sounds are diminished, especially on the left. ABDOMEN: Distended and tender. Fluid wave is noted. Bowel sounds are present. No masses, no guarding. EXTREMITIES: Trace edema. AV fistula to left upper extremity. SKIN: Visible skin, no lesions or rashes. CENTRAL NERVOUS SYSTEM: Grossly intact. NEUROLOGIC: No gross focal deficit. MUSCULOSKELETAL: No acute deformities noted. PSYCHOLOGICAL: Poor historian. Affect is flat. LABORATORY DATA: CBC: White blood cells 5.5, hemoglobin 10.2, hematocrit 31.9, platelets 354. INR 1.3. BMP: Sodium 138, potassium 3.8, chloride 98, CO2 29, BUN 38, creatinine 9.23, hemoglobin A1c is below the detectable range, AST 10, ALT 9, alkaline phosphatase 128, total bilirubin 0.5, albumin 2.9, folic acid 3.9, vitamin D 10.5. CT of the abdomen and pelvis shows generalized anasarca with marked abdominal pelvic ascites, diffuse gastric and small wall bowel and mucosal prominence may be related to hepatic insufficiency and edema, significant left pleural effusion, small right pleural effusion, numerous sclerotic lesions throughout the skeleton. IMPRESSION: 1. Ascites. Need to rule out spontaneous bacterial peritonitis. 2. Left-sided pleural effusion. 3. Pericardial effusion without cardiac tamponade. 4. Chronic kidney disease, on hemodialysis. 5. Nausea. 6. Anemia of chronic disease. 7. Vitamin D deficiency. 8. Folic acid deficiency. 9. Protein calorie malnutrition. 10. Focal segmental glomerulosclerosis . 11. Hypertension. 12. Seizure disorder. 13. Dialysis dysequilibrium syndrome. 14. Depression. 15. Chronic back pain. 16. Asthma. 17. Congestive heart failure. [place], [place] REPORT OF CONSULTATION NAME: JANICE COYLE UNIT #: [id number] ROOM: [facility] DOCTOR: AVELINA ESPINOSA DO BIRTHDATE: [birth year] 18. Pulmonary hypertension. PLAN OF MANAGEMENT: CT shows large left pleural effusion with marked abdominal ascites. Need to rule out spontaneous bacterial peritonitis. Ultrasound paracentesis has been ordered along with fluid Gram stain and culture. Additional ascites fluid testing has been ordered as well. After paracentesis he was started on Rocephin 2 grams daily. Further recommendations following results of ascites fluid testing. He has end-stage renal disease, on hemodialysis. PLAN: He is due for dialysis Sunday, and Sunday. DVT prophylaxis with heparin 5000 units b.i.d. Additional treatment changes will be done based on progression of the illness. Avelina Espinosa DO OSORIO TROY MD CM:CONSTR:REPORT OF CONSULTATION 1425 05/08/18 0609 interface
[~2018-05-06 17:45] MED LIST changes: +CARVEDILOL12.5 MG PO; -CARVEDILOL25 MG PO; -NIFEDICAL PO; +NIFEDICAL XL PO
[2018-05-06 17:58] VITALS: BP 138/81
[2018-05-06 19:09] LABS: BASO # 0.1 10*3/uL (0.0-0.1); BASO % 2.1 % (0.0-1.0); EOS # 0.2 10*3/uL (0.0-0.4); EOS % 2.9 % (1.0-4.0); HEMATOCRIT 31.6 % (42.0-52.0); HEMOGLOBIN 10.4 g/dl (14.0-18.0); LYMPH % 16.2 % (27.0-41.0); MEAN CELL VOLUME 91.9 fl (80.0-94.0); MEAN CORPUSCULAR HGB 30.2 pg (27.0-31.0); MEAN CORPUSCULAR HGB CONC 32.9 g/dl (33.0-37.0); MEAN PLATELET VOLUME 8.7 fl (9.6-12.3); MONO # 0.8 10*3/uL (0.1-1.0); MONO % 12.3 % (3.0-9.0); NEUT % 66.2 % (47.0-73.0); PLATELET COUNT AUTOMATED 360 10*3/uL (130-400); RED BLOOD COUNT 3.44 10*6/uL (4.50-5.90); WHITE BLOOD COUNT 6.1 10*3/uL (4.8-10.8)
[2018-05-06 19:19] LABS: ACT PARTIAL THROMBO TIME 37.4 SECONDS (20.8-31.5); INTERNATIONAL NORM RATIO 1.3 (2.0-3.5)
[2018-05-06 19:46] LABS: CREATININE 8.82 mg/dL (0.70-1.30); PHOSPHOROUS 3.5 mg/dL (2.5-4.9); POTASSIUM 3.7 mmol/L (3.5-5.1); TOTAL PROTEIN 6.7 gm/dL (6.4-8.2)
[2018-05-06 19:47] LABS: FREE T4 1.34 ng/dl (0.76-1.46)
[2018-05-06 19:52] LABS: THYROID STIM HORMONE (HS) 0.92 uIU/ml (0.358-4.75)
[2018-05-06 19:56] LABS: VITAMIN D, 25-HYDROXY 10.5 ng/mL (30-100)
[2018-05-06 20:00] VITALS: BP 144/85
[2018-05-06] MEDS ORDERED: MINOXIDIL2.5 MG PO (20:49)
[2018-05-06] MEDS ORDERED: ACETAMINOPHEN500 M4 PO (20:53)
[2018-05-06] MEDS ORDERED: ADVAIR 250/501 EA INH (20:57)
[2018-05-07] VITALS (7 sets, daily range): BP systolic 132–149; BP diastolic 70–84
[2018-05-07 06:11] LABS: BASO # 0.1 10*3/uL (0.0-0.1); BASO % 2.4 % (0.0-1.0); EOS # 0.2 10*3/uL (0.0-0.4); EOS % 3.8 % (1.0-4.0); HEMATOCRIT 31.9 % (42.0-52.0); HEMOGLOBIN 10.2 g/dl (14.0-18.0); LYMPH # 0.9 10*3/uL (1.3-4.4); LYMPH % 16.2 % (27.0-41.0); MEAN CELL VOLUME 92.5 fl (80.0-94.0); MEAN CORPUSCULAR HGB 29.6 pg (27.0-31.0); MONO # 0.6 10*3/uL (0.1-1.0); MONO % 10.7 % (3.0-9.0); NEUT # 3.7 10*3/uL (2.3-7.9); NEUT % 66.5 % (47.0-73.0); PLATELET COUNT AUTOMATED 354 10*3/uL (130-400); RED BLOOD COUNT 3.45 10*6/uL (4.50-5.90); RED CELL DISTRI WIDTH 13.9 % (0-14.5); WHITE BLOOD COUNT 5.5 10*3/uL (4.8-10.8)
[2018-05-07 06:20] LABS: INTERNATIONAL NORM RATIO 1.3 (2.0-3.5)
[2018-05-07 06:44] LABS: ALBUMIN 2.9 gm/dl (3.1-4.5); CREATININE 9.23 mg/dL (0.70-1.30); PHOSPHOROUS 3.6 mg/dL (2.5-4.9); POTASSIUM 3.8 mmol/L (3.5-5.1); TOTAL PROTEIN 6.5 gm/dL (6.4-8.2)
[2018-05-07 12:42] LABS: BODY FLUID WBC 584 /uL
[2018-05-07 14:19] LABS: BF LYMPHOCYTES 33 %; BF MACROPHAGES 50 %; BF NEUTROPHILS 17 %
[2018-05-08] VITALS (10 sets, daily range): BP systolic 110–142; BP diastolic 66–90
[2018-05-08 07:01] LABS: BASO # 0.1 10*3/uL (0.0-0.1); BASO % 2.1 % (0.0-1.0); EOS # 0.2 10*3/uL (0.0-0.4); EOS % 2.9 % (1.0-4.0); LYMPH # 0.9 10*3/uL (1.3-4.4); LYMPH % 16.8 % (27.0-41.0); MEAN CORPUSCULAR HGB 29.7 pg (27.0-31.0); MEAN CORPUSCULAR HGB CONC 32.3 g/dl (33.0-37.0); MEAN PLATELET VOLUME 8.9 fl (9.6-12.3); MONO # 0.7 10*3/uL (0.1-1.0); MONO % 13.9 % (3.0-9.0); NEUT # 3.4 10*3/uL (2.3-7.9); NEUT % 63.9 % (47.0-73.0); PLATELET COUNT AUTOMATED 358 10*3/uL (130-400); RED BLOOD COUNT 3.37 10*6/uL (4.50-5.90); RED CELL DISTRI WIDTH 13.7 % (0-14.5); WHITE BLOOD COUNT 5.2 10*3/uL (4.8-10.8)
[2018-05-08 07:33] LABS: ALBUMIN 2.5 gm/dl (3.1-4.5); ALKALINE PHOSPHATASE 123 U/L (45-117); CHLORIDE 99 mmol/L (98-107); CREATININE 6.36 mg/dL (0.70-1.30); PHOSPHOROUS 2.7 mg/dL (2.5-4.9); POTASSIUM 3.7 mmol/L (3.5-5.1); SGOT/AST 9 IU/L (3-35); SODIUM 137 mmol/L (136-145); TOTAL PROTEIN 5.8 gm/dL (6.4-8.2)
[2018-05-08 07:35] LABS: BUN 22 mg/dl (7-24); SGPT/ALT < 6 U/L (12-78)
[2018-05-08 12:37] LABS: IRON 38 ug/dL (65-175); TOTAL IRON BINDING CAPACITY 144 ug/dl (250-450)
[2018-05-09] VITALS: BP 108/64
[2018-05-09 04:00] VITALS: BP 129/67
[2018-05-09 07:38] LABS: BASO # 0.1 10*3/uL (0.0-0.1); BASO % 1.8 % (0.0-1.0); EOS # 0.2 10*3/uL (0.0-0.4); EOS % 4.9 % (1.0-4.0); HEMATOCRIT 30.5 % (42.0-52.0); HEMOGLOBIN 9.8 g/dl (14.0-18.0); LYMPH % 21.7 % (27.0-41.0); MEAN CELL VOLUME 92.1 fl (80.0-94.0); MEAN CORPUSCULAR HGB 29.6 pg (27.0-31.0); MEAN CORPUSCULAR HGB CONC 32.1 g/dl (33.0-37.0); MEAN PLATELET VOLUME 8.8 fl (9.6-12.3); MONO # 0.5 10*3/uL (0.1-1.0); NEUT # 2.7 10*3/uL (2.3-7.9); NEUT % 59.2 % (47.0-73.0); PLATELET COUNT AUTOMATED 328 10*3/uL (130-400); RED BLOOD COUNT 3.31 10*6/uL (4.50-5.90); RED CELL DISTRI WIDTH 13.9 % (0-14.5); WHITE BLOOD COUNT 4.5 10*3/uL (4.8-10.8)
[2018-05-09 08:00] VITALS: BP 136/80; BP 139/81
[2018-05-09 08:01] LABS: ALBUMIN 2.4 gm/dl (3.1-4.5); CREATININE 8.27 mg/dL (0.70-1.30); PHOSPHOROUS 3.8 mg/dL (2.5-4.9); POTASSIUM 4.4 mmol/L (3.5-5.1)
[2018-05-09 08:03] LABS: TOTAL PROTEIN 5.6 gm/dL (6.4-8.2)
[2018-05-09 09:06] LABS: HEPATITIS B SURFACE AG Negative (Negative); HEPATITIS C VIRUS ANTIBODY <0.1 s/co (0.0-0.9)
[2018-05-09 10:53] LABS: BODY FLUID WBC 312 /uL
[2018-05-09 11:22] LABS: BF LYMPHOCYTES 70 %; BF MACROPHAGES 16 %; BF NEUTROPHILS 12 %
[2018-05-09 13:08] LABS: ANTI-SMOOTH MUSCLE ANTIBODY 10 Units (0-19)
[2018-05-09 16:00] VITALS: BP 155/82
[2018-05-09 20:00] VITALS: BP 140/86
[2018-05-10] VITALS: BP 145/88
[2018-05-10 08:00] VITALS: BP 128/68
[2018-05-10 09:12] LABS: BASO # 0.1 10*3/uL (0.0-0.1); BASO % 2.5 % (0.0-1.0); EOS # 0.3 10*3/uL (0.0-0.4); EOS % 5.7 % (1.0-4.0); HEMATOCRIT 31.1 % (42.0-52.0); HEMOGLOBIN 10.1 g/dl (14.0-18.0); LYMPH # 0.9 10*3/uL (1.3-4.4); LYMPH % 21.1 % (27.0-41.0); MEAN CORPUSCULAR HGB 29.9 pg (27.0-31.0); MEAN CORPUSCULAR HGB CONC 32.5 g/dl (33.0-37.0); MEAN PLATELET VOLUME 8.9 fl (9.6-12.3); MONO # 0.5 10*3/uL (0.1-1.0); MONO % 12.4 % (3.0-9.0); NEUT # 2.5 10*3/uL (2.3-7.9); NEUT % 58.1 % (47.0-73.0); PLATELET COUNT AUTOMATED 349 10*3/uL (130-400); RED BLOOD COUNT 3.38 10*6/uL (4.50-5.90); RED CELL DISTRI WIDTH 13.9 % (0-14.5); WHITE BLOOD COUNT 4.4 10*3/uL (4.8-10.8)
[2018-05-10 09:31] LABS: ALBUMIN 2.6 gm/dl (3.1-4.5); CREATININE 6.18 mg/dL (0.70-1.30); PHOSPHOROUS 3.3 mg/dL (2.5-4.9); POTASSIUM 3.9 mmol/L (3.5-5.1)
[2018-05-10 12:00] VITALS: BP 137/89
[2018-05-10] MEDS ORDERED: NATURE'S BLEND F1 MG PO (13:15)
[2018-05-10] MEDS ORDERED: REGLAN5 MG PO (13:15)
[2018-06-21 09:05] LABS: ACID FAST CULTURE Negative (.)
== END 2018-05-10 14:30 | disposition home or self-care (01) | DRG 371 ==
LOC: 4E 17:45
PROVIDERS: Internal Medicine; Internal Medicine Critical Care Medicine; Internal Medicine Nephrology
PROC: 0W9G3ZZ Drainage of Peritoneal Cavity, Percutaneous Approach (ICD-10-PCS; 2018-05-07)
PROC: 0DB78ZX Excision of Stomach, Pylorus, Via Natural or Artificial Opening Endoscopic, Diagnostic (ICD-10-PCS; principal; 2018-05-08)
PROC: 0W9B3ZZ Drainage of Left Pleural Cavity, Percutaneous Approach (ICD-10-PCS; 2018-05-09)
DX: K65.2 Spontaneous bacterial peritonitis (principal); N18.6 End stage renal disease; I13.2 Hypertensive heart and chronic kidney disease with heart failure and with stage 5 chronic kidney disease, or end stage renal disease; J90 Pleural effusion, not elsewhere classified; D68.4 Acquired coagulation factor deficiency; E44.0 Moderate protein-calorie malnutrition; R18.8 Other ascites; I31.3 Pericardial effusion (noninflammatory); I50.32 Chronic diastolic (congestive) heart failure; J98.11 Atelectasis; J93.9 Pneumothorax, unspecified; E11.22 Type 2 diabetes mellitus with diabetic chronic kidney disease; E83.41 Hypermagnesemia; I27.20 Pulmonary hypertension, unspecified; E87.8 Other disorders of electrolyte and fluid balance, not elsewhere classified; D72.810 Lymphocytopenia; D72.821 Monocytosis (symptomatic); R74.8 Abnormal levels of other serum enzymes; E53.8 Deficiency of other specified B group vitamins; N05.1 Unspecified nephritic syndrome with focal and segmental glomerular lesions; G40.909 Epilepsy, unspecified, not intractable, without status epilepticus; F32.9 Major depressive disorder, single episode, unspecified; M54.9 Dorsalgia, unspecified; J45.909 Unspecified asthma, uncomplicated; K44.9 Diaphragmatic hernia without obstruction or gangrene; G89.29 Other chronic pain; D63.1 Anemia in chronic kidney disease; K29.80 Duodenitis without bleeding; K29.70 Gastritis, unspecified, without bleeding; E66.9 Obesity, unspecified; Z99.2 Dependence on renal dialysis; Q78.8 Other specified osteochondrodysplasias; Z88.8 Allergy status to other drugs, medicaments and biological substances; Z79.899 Other long term (current) drug therapy; Z83.49 Family history of other endocrine, nutritional and metabolic diseases; Z83.3 Family history of diabetes mellitus; Z82.49 Family history of ischemic heart disease and other diseases of the circulatory system; Z68.27 Body mass index [BMI] 27.0-27.9, adult

== ENCOUNTER → 2018-06-12 | Outpatient (CLI) | payer OTHER ==
[~2018-06-12] MED LIST changes: +ACETAMINOPHEN500 M4 PO; +ADVAIR 250/501 EA INH; +MINOXIDIL2.5 MG PO; +NATURE'S BLEND F1 MG PO; +REGLAN5 MG PO
== END | disposition home or self-care (01) ==
LOC: EDSTATUS 12:30
DX: R18.8 Other ascites (principal); N26.1 Atrophy of kidney (terminal); E11.22 Type 2 diabetes mellitus with diabetic chronic kidney disease; N18.6 End stage renal disease; Z99.2 Dependence on renal dialysis; Z88.8 Allergy status to other drugs, medicaments and biological substances

== ENCOUNTER 2018-07-01 19:37 | Inpatient (IN) | payer OTHER ==
[~2018-07-01] VITALS: Ht 162.6 cm; Wt 69.0 kg
--- NOTE | ~2018-07-01 | PR ---
[place], [place] PROGRESS NOTE NAME: JANICE COYLE UNIT #: [id number] ROOM: [facility] DOCTOR: OSORIO LABOY MD BIRTHDATE: [birth year] DOS: 07/02/2018 ADDENDUM NOTE CONSULTATION REQUESTED BY: Dr. Red Lester. REASON FOR CONSULTATION: Right pleural effusion. The patient was independently seen and examined with [id number] encounter, history was confirmed. Physical examination was performed. All the labs were reviewed including the CT scan and the x-rays. The assessment for the patient today's visit were personally completed and the recommendations were made today's visit as well. The note done by the medical records custodian, was approved. HISTORY OF PRESENT ILLNESS: A 27-year-old male patient who has been admitted to the hospital under care of the hospitalist services on 07/01/2018. The patient reported symptoms of having increased abdominal pain with symptoms of shortness of breath. The shortness of breath has been noted to be worsening gradually. He was also known with history of chronic liver disease ascites with abdominal distention reported. The patient noted poor historian, unable to give me any history. However, the patient denies any symptoms of cough at the present time. Denies symptoms of acute chest pain. Shortness of breath was mostly occurring with exertional activities. REVIEW OF SYSTEMS: Referred by the medical records custodian, was approved. PAST MEDICAL HISTORY: 1. History of end-stage renal failure, hemodialysis every Sunday, and Saturdays. 2. Anemia secondary to chronic kidney disease. 3. History of bronchial asthma, severity unknown. 4. Depression. 5. Dialysis, dysequilibrium syndrome history. 6. History of focal segmental glomerulosclerosis. 7. Type 2 diabetes mellitus. 8. Essential hypertension. 9. Seizure disorder. 10. Pulmonary hypertension noted on echocardiogram. 11. Recurrent pleural fluid on the left side and previous noted pleural fluid in the right side as well. SURGICAL HISTORY: 1. VATS procedure, recurrent right pleural fluid, noted nonmalignant with chronic lymphocytosis on 12/12/2017. 2. Chest tube insertion. 3. Creation of fistula in the arm for hemodialysis. 4. Thoracentesis that was performed on the left side 05/09/2018, 1300 mL of pleural fluid was removed at that time. SOCIAL HISTORY: The patient is not , lives at home. There was no history of alcohol use, illicit drug use. [place], [place] PROGRESS NOTE NAME: JANICE COYLE UNIT #: [id number] ROOM: [facility] DOCTOR: WOODROW LAIRD MD,OSORIO BIRTHDATE: [birth year] FAMILY HISTORY: The patient reported for diabetes, hypothyroidism, and essential hypertension. MEDICATIONS: Current administered medication noted use of heparin for DVT prophylaxis 5000 units b.i.d., morphine sulfate, IV Zosyn, Levaquin and vancomycin. DRUG ALLERGIES: THE PATIENT WAS NOTED ALLERGIES: 1. EFFEXOR. 2. WELLBUTRIN. 3. ZOLOFT. 4. CELEXA. PHYSICAL EXAMINATION: GENERAL: A 27-year-old male patient who has been currently sitting on side of bed without acute distress. Height of 5 feet 4 inches, weight of 152 pounds, BMI 26.1. VITAL SIGNS: The temperature normal, respiratory rate 18-24, heart rate 82-92, blood pressure 150/100-181/110. A pulse oxygen saturation recorded on 2 liters nasal cannula 96% saturation. HEAD, EYES, EARS, NOSE, AND THROAT: Head was atraumatic. Eyes nonicterus. NECK: Supple mucosa moist. CARDIOVASCULAR SYSTEM: S1, S2 is audible. LUNGS: Noted with absent breath sounds in the mid and lower portion of the left hemithorax. The right lung clear to auscultation. There was no wheezing or crackles. ABDOMEN: Soft. Moderate distention, most likely related to the ascites. Bowel sounds present. EXTREMITIES: No edema. VISIBLE SKIN: No lesions or rashes. MUSCULOSKELETAL: Without any acute deformities. LABORATORY AND DIAGNOSTIC DATA: Lactic acid 917, normal. PT/PTT yesterday on admission, INR 1.3, PTT normal. The CBC yesterday on admission, hemoglobin 12.3, WBC count normal, platelet count normal. The CMP on admission, glucose 91, BUN 37, creatinine of 8.12. Today, BUN 41, creatinine 8.62. PT/PTT repeated again. INR were noted 1.4. Review of the radiology data: A large left pleural fluid was noted with pulmonary venous congestion in the right lung. The CT scan of the abdomen and pelvis was also done, which was noted with finding reported by the radiologist as free fluid was noted in the abdomen and pelvic area. The edema of the soft tissue was also noted, severe atrophy of the kidneys bilaterally reported. Colonic diverticulosis without any radiologic evidence of acute diverticulitis. IMPRESSION: 1. Current exudate pleural fluid noted on the right side previously noted with the same condition left side. Treated with VATS procedure in 11/2017 with surgical intervention. The patient has a thoracentesis done on the left side with significant fluid removed, which has been noted with recurrence and [place], [place] PROGRESS NOTE NAME: JANICE COYLE UNIT #: [id number] ROOM: [facility] DOCTOR: WOODROW LAIRD MD,OSORIO BIRTHDATE: [birth year] appeared to be larger than the previous fluid. 2. History of chronic glomerulosclerosis. 3. End-stage renal failure, on hemodialysis regular basis. 4. Chronic liver disease with recurrent ascites. 5. Abdominal pain, rule out SBP, but there was no clinical evidence of infection otherwise was noted. PLAN OF MANAGEMENT: Thoracentesis at the bedside for removal of the fluid, but the patient might need to be transferred later to [facility] to have the left VATS procedure done for surgical prophylaxis to prevent the recurrence of the current pleural fluid. Pleural fluid checked again for any infection, malignant process and others. In the meantime, continue other supportive therapy, plan of management. Current finding was noted consistent with evidence of acute pneumonia. He was noted on three-broad spectrum intravenous antibiotic that could be discontinued completely. Hemodialysis per order from Nephrology Service. Paracentesis was planned to be done today after completion of hemodialysis, so I have planned on doing the chest tube rather drainage of the pleural fluid tomorrow. Ultrasound of the chest was performed at bedside was noted with a large pleural fluid. The patient does have signs of respiratory distress or requiring any oxygen, high flow of oxygen supplementation with 2 liter nasal cannula used and does not require an immediate intervention at the present time. Since he is already getting ____ procedure done, I do not want to complicate, again multiple procedures done in the same day to decrease the morbidity of this patient. Thanks for allowing me to participate in the care of this patient. OSORIO TROY MD CM:PNTRANS [id number] OSORIO LAIRD MD 07/02/18 1154 interface
--- NOTE | ~2018-07-01 | PR ---
[place], [place] PROGRESS NOTE NAME: JANICE COYLE UNIT #: [id number] ROOM: [place] [address] DOCTOR: OSORIO LABOY MD BIRTHDATE: [birth year] DOS: 07/03/2018 SUBJECTIVE: The patient was independently seen and examined in [id number] encounter. History was confirmed. Physical examination was performed. The labs were assessed. The assessment and management note was personally made as well. The note done by the medical records analyst was approved. The patient has been noted a cough, which are noted mild with a small amount of sputum expectoration. Denies symptoms of chest pain. Denies symptoms of abdominal pain, nausea, vomiting, and diarrhea. The patient denies symptoms of fever or chills or headache. Remaining systems were reviewed. They were noted all negative. The patient's paracentesis was not done yesterday by the radiology service, has planned to be done today. He had received his routine hemodialysis yesterday successfully without difficulty. He was planned for thoracentesis to be done today as large volume of pleural fluid was still noted recurrent on the left side. Reassessed the patient today with ultrasound. OBJECTIVE: VITAL SIGNS: Normal temperature, respiratory rate 19, heart rate of 110, blood pressure 140/88. Pulse oxygen saturation the patient on 2 liters nasal cannula 99% saturation. HEENT: Examination shows head was atraumatic. Eyes, nonicterus. NECK: Supple. CARDIOVASCULAR: S1, S2 is audible. LUNGS: The patient was noted with decreased breath sounds in the left chest as previously. ABDOMEN: Soft with moderate ascites. It was nontender today. Bowel sounds present. EXTREMITIES: Without any acute edema. VISIBLE SKIN: No lesions or rashes. MUSCULOSKELETAL: No acute deformities. CENTRAL NERVOUS SYSTEM: Cranial nerves 2-12 remains intact. LABORATORY DATA: CBC of the patient on 07/03/2018, WBC normal, hemoglobin 12.8, platelet count was normal. The renal function panel today shows BUN 21, creatinine 5.69. Remaining electrolytes are grossly normal. IMPRESSION: 1. The patient with a large recurrent left pleural fluid, which has been noted exudative with inflammatory changes without any evidence of malignancy. 2. The patient with recurrent ascites. 3. Abdominal pain seemed to be resolved. 4. End-stage renal failure, hemodialysis, which is chronic glomerulonephrosis. PLAN OF THERAPY: Proceed with the ultrasound-guided thoracentesis today. Continuation of other plan of therapy and care plan per usual. [place], [place] PROGRESS NOTE NAME: JANICE COYLE UNIT #: [id number] ROOM: [place] [address] DOCTOR: OSORIO LABOY MD BIRTHDATE: [birth year] OSORIO TROY MD CM:PNKELY [id number] OSORIO LAIRD MD 07/17/18 0830 interface
--- NOTE | ~2018-07-01 | PR ---
[place], [place] PROGRESS NOTE NAME: JANICE COYLE UNIT #: [id number] ROOM: 403 DOCTOR: ESTEVAN HANLEY DO BIRTHDATE: [birth year] DOS: 07/04/2018 SUBJECTIVE: The patient was seen and examined while he was in dialysis. The patient admits to continued coughing productive for pink sputum as well as nausea. He also admits to abdominal pain. His shortness of breath is improved. He denies any fevers, chills or any chest pain. When the patient went to Radiology for paracentesis yesterday, a minimal amount of fluid was found on ultrasound and the procedure was not performed. OBJECTIVE: VITAL SIGNS: Include temperature at 98.3 degrees Fahrenheit, heart rate at 126, respiratory rate at 17, blood pressure at 158/97 and pulse oximetry at 94% on 2 liters via nasal cannula. GENERAL APPEARANCE: He is awake, alert, responsive and cooperative with exam. HEENT: Shows head is normocephalic and atraumatic. The eyes appear to be without any lesions, ulcerations, or drainage. NECK: The trachea is midline. CARDIOVASCULAR: The heart rate is tachycardic, but the rhythm was regular. A systolic murmur was auscultated. The patient remains with 2+ pitting edema to his bilateral lower extremities. S1 and S2 sounds were appreciated on exam. PULMONARY: Bilaterally the lungs were with diminished breath sounds and crackles were appreciated in the bilateral lung bases. ABDOMEN: The abdomen was soft. The patient endorsed experiencing mild tenderness to palpation over the left lower quadrant. Positive bowel sounds were auscultated on examination. EXTREMITIES: The patient was with 2+ pitting edema to both lower extremities, but no clubbing, cyanosis or erythema was noted. LABORATORY DATA: Most recent CBC from 07/03/2018 showed white count at 9.3, hemoglobin at 12.8, hematocrit at 38.9 and platelet count at 227. Chemistries from today showed sodium at 134, potassium at 3.9, chloride at 93, bicarb at 27, BUN at 34, creatinine at 7.70, glucose at 66, calcium at 9.4, phosphorus at 5.4. Albumin at 3.2. Analysis of the pleural fluid from 07/03/2018 showed pH at 7.438, WBCs at 632, RBCs at 1000, segmented neutrophils at 1, lymphocytes at 93, monocytes at 3, basophils at 3, glucose at 79, total protein at 3.6, albumin at 1.8, LDH at 134, amylase at 22. Cholesterol below 50 and triglycerides of 42. Serum LDH from 07/03/2018 was noted to be 250. IMPRESSION: 1. Recurrent left-sided pleural effusion, noted to be transudative. 2. End-stage renal disease, on hemodialysis on Tuesdays, and Saturdays. 3. History of focal segmental glomerulosclerosis. 4. History of asthma. 5. History of congestive heart failure. 6. History of chronic pain. 7. History of depression. 8. History of seizure disorder. 9. Overweight. [place], [place] PROGRESS NOTE NAME: JANICE COYLE UNIT #: [id number] ROOM: [facility] DOCTOR: ESTEVAN HANLEY DO BIRTHDATE: [birth year] PLAN OF MANAGEMENT: Due to the high likelihood of recurrence of this patient's pleural effusions, he will be transferred to [facility] for a VATS procedure to be done with pleurodesis. It is noted that in 11/2016, the patient previously was also transferred to [facility] for a VATS procedure with pleurodesis to resolve the right-sided effusion at that time. Estevan Hanley DO OSORIO TROY MD CM:PNKELY [id number] ESTEVAN HANLEY DO 07/04/18 1329 interface
--- NOTE | ~2018-07-01 | CON ---
[place], [place] REPORT OF CONSULTATION NAME: JANICE COYLE UNIT #: [id number] ROOM: [facility] DOCTOR: ESTEVAN HANLEY DO BIRTHDATE: [birth year] DOS: 07/02/2018 REQUESTING PHYSICIAN: Dereck Lester MD REASON FOR CONSULTATION: Evaluation of a moderate to large left-sized pleural effusion. HISTORY OF PRESENT ILLNESS: This patient is an unfortunate 27-year-old male, who presented to the Emergency Department due to complaints of shortness of breath and abdominal pain. History is somewhat limited as the patient appears to be a poor historian, and as a result, some of the history was supplemented with use of the Emergency Department record and the patient's medical chart. The patient states that he has been short of breath for the last day. He denies a cough and he also endorses shortness of breath when he lies supine. He states that he underwent a paracentesis 3 weeks ago. From the patient's Emergency Department note, the patient's mother reported that the patient had 2-3 liters taken off at that time. He has just completed orientation for getting back onto the kidney transplant list. He has a history of focal segmental glomerulosclerosis and is receiving dialysis on Sunday, and Saturdays. Chest x-ray obtained in the ED showed a [id number] left-sided pleural effusion with consideration for developing right upper lobe and lower lobe airspace disease. Review of the patient's chart shows that in April of this year, the patient similarly presented to this hospital and was found to have a large left-sided pleural effusion as well, at which time, a thoracentesis was performed. Paracentesis was also performed at that time and prior to that back in 11/2016, the patient also underwent a thoracentesis for a large pleural effusion. PAST MEDICAL HISTORY: Significant for history of asthma, history of congestive heart failure, history of chronic back pain, history of depression, history of diverticulosis, end-stage renal disease, on hemodialysis on Sunday, and Saturdays; history of focal segmental glomerulosclerosis, history of type 2 diabetes, history of hiatal hernia, history of hypertension, history of seizure disorder, history of pulmonary hypertension, history of vitamin D deficiency, history of anemia, history of recurrent pleural effusions on the left side with thoracentesis being performed last in 04/2018 and previous to that in 11/2016. PAST SURGICAL HISTORY: Significant for history of a colonoscopy, history of esophagogastroduodenoscopy, history of thoracentesis in 2017 and 2016, history of placement of AV fistula, history of chest tube insertion, history of VATS procedure back in 11/2017. SOCIAL HISTORY: The patient denies use of illicit drugs. There is a past history of use of tobacco and alcohol. FAMILY HISTORY: Mother is reportedly healthy in her 40s and past medical history for father is unknown due to father being incarcerated. DRUG ALLERGIES: SERTRALINE, BUPROPION, CITALOPRAM AND VENLAFAXINE. [place], [place] REPORT OF CONSULTATION NAME: JANICE COYLE UNIT #: [id number] ROOM: [facility] DOCTOR: ESTEVAN HANLEY DO BIRTHDATE: [birth year] CURRENT MEDICATIONS: Include p.r.n. [place] 5/325 mg every 4 hours for pain, p.r.n. IV morphine 2 mg q. 4 hours for pain, subcutaneous heparin 5000 units every 12 hours, Zosyn 2.25 grams intravenously every 6 hours, PhosLo 667 mg 3 times a day with meals, carvedilol 12.5 mg every 12 hours, clonidine 0.3 mg every 8 hours, hydralazine 100 mg every 8 hours, Keppra 500 mg once a day, lisinopril 40 mg once a day, minoxidil 5 mg at nighttime, Singulair 10 mg at nighttime, Procardia extended release 60 mg twice a day, Ultram 50 mg twice a day, simvastatin 20 mg at nighttime, folic acid 1 mg daily, Prilosec 40 mg daily and Keppra additional 500 mg dose is on Sunday, and Sunday at nighttime. REVIEW OF SYSTEMS: GENERAL: The patient denies fevers or chills. HEENT: The patient denies changes in vision, changes in hearing, ear pain, eye pain or any dysphagia. CARDIOVASCULAR: The patient denies chest pain, palpitations. RESPIRATORY: The patient endorses shortness of breath. Denies coughing. Denies production of sputum. Denies wheezing. Denies hemoptysis. ABDOMINAL: The patient reports abdominal pain. Denies nausea, vomiting or diarrhea. Denies changes in stool color or caliber. Denies loss of appetite. GENITOURINARY: The patient reports that he is anuric at baseline. NEUROLOGICAL: The patient denies lightheadedness or dizziness or confusion. PSYCHIATRIC: He reveals substance abuse. ENDOCRINE: He denies intolerance to heat or cold. SKIN: Denies any new ulcerations, lesions or rashes. PHYSICAL EXAMINATION: VITAL SIGNS: Include temperature at 97.5, heart rate 82, respiratory rate 21, blood pressure at 180/92, pulse oximetry was 98% on 2 liters nasal cannula. GENERAL: The patient was alert, awake, responsive and cooperative. HEENT: His head was normocephalic and atraumatic. The eyes were without lesions, ulcerations, or drainage. Ears, Nose And Throat: Without lesions, scars or masses. The trachea was midline. CARDIOVASCULAR: Regular rate and rhythm. A systolic murmur was auscultated. The patient was with 2+ edema to his bilateral lower extremities. S1 and S2 heart sounds were auscultated. PULMONARY: Decreased breath sounds were appreciated in the mid to lower ellis of the left lung. No wheezing was appreciated. Occasional crackles were appreciated in the right lung. ABDOMEN: Soft. There was distention noted and the patient was with mild tenderness to palpation. Bowel sounds were positive. EXTREMITIES: There were 2+ pitting edema to both lower extremities, otherwise, no clubbing, cyanosis or erythema was appreciated. NEUROLOGIC: The patient was without focal neurological deficits grossly and cranial nerves 2-12 are grossly intact. PSYCHOLOGICAL: The patient was a poor historian and his mood appeared to be depressed. SKIN: Warm and dry. No rashes, ulcerations, induration was appreciated. LABORATORY AND DIAGNOSTIC STUDIES: CBC: The patient's white count was 7.9, [place], [place] REPORT OF CONSULTATION NAME: JANICE COYLE UNIT #: [id number] ROOM: [facility] DOCTOR: ESTEVAN HANLEY DO BIRTHDATE: [birth year] hemoglobin was 12.4, hematocrit was 38.3, platelet count was 265. In terms of coagulation studies: PT was 14.7, INR was 1.4, activated PTT was 33.5. In terms of chemistries: Sodium was 138, potassium was 4.4, chloride was 101, bicarbonate was 25, BUN was 41, creatinine was 8.62, glucose was 81. Hemoglobin A1c was 3.6, calcium was 8.5, phosphorus was 5.6, magnesium was 2.3, total bilirubin was 0.7, AST was 16, ALT was 11, alkaline phosphatase was 126. Albumin was 3.4. In terms of imaging studies, chest x-ray obtained on 07/01/2018 showed a mecypeqs-[id number]-[id number] left-sided pleural effusion with consideration for developing right upper and lower lobe airspace disease. An abdominal and pelvic CT without contrast also obtained yesterday on 07/01/2018 showed no acute process. Small bilateral pleural effusions and free fluid in the abdomen and pelvis was noted without any edema in the soft tissues bilaterally. Both kidneys were severely atrophic without any stones or hydronephrosis and diverticulosis was appreciated. Moreover, a venous duplex study of the right lower extremity performed on 07/01/2018 showed no evidence for DVT. Blood cultures are pending. IMPRESSION: 1. Large left-sided pleural effusion. 2. End-stage renal disease, on hemodialysis on Tuesdays, and Saturdays. 3. History of focal segmental glomerulosclerosis. 4. History of asthma. 5. History of congestive heart failure. 6. History of chronic pain. 7. History of depression. 8. History of seizure disorder. PLAN OF MANAGEMENT: For this patient's large left pleural effusion, Pulmonary medicine will plan on performing a bedside thoracentesis tomorrow. The pleural fluid will be sent for analysis subsequently. There is a possibility that at some point, this patient may need transfer to [facility] for a pleurodesis performed by Surgery. Based on this patient's imaging studies and clinical evaluation, this patient does not have pneumonia, unlikely to have an infectious process going on right now. Therefore, antibiotics were discontinued. This patient is expected to undergo paracentesis following hemodialysis today for which Nephrology service is also following. Estevan Hanley DO [place], [place] REPORT OF CONSULTATION NAME: JANICE COYLE UNIT #: [id number] ROOM: [facility] DOCTOR: ESTEVAN HANLEY DO BIRTHDATE: [birth year] OSORIO TROY MD CM:CONSTR:REPORT OF CONSULTATION 1252 07/02/18 2335 interface
--- NOTE | ~2018-07-01 | PR ---
[place], [place] PROGRESS NOTE NAME: JANICE COYLE UNIT #: [id number] ROOM: [facility] DOCTOR: ESTEVAN HANLEY DO BIRTHDATE: [birth year] DOS: 07/03/2018 SUBJECTIVE: The patient was seen and examined at the bedside. He reports experiencing shortness of breath as well as coughing. He denies fevers, chills, chest pain, nausea or abdominal pain. He underwent hemodialysis yesterday and his paracentesis has apparently been scheduled for today at around 11:00 a.m. OBJECTIVE: VITAL SIGNS: Show temperature at 97.9, heart rate at 110, respiratory rate at 19, blood pressure at 148/88 and pulse ox at 99% on 2 liters nasal cannula. GENERAL APPEARANCE: The patient is alert, awake, responsive and cooperative. HEENT: The head is normocephalic and atraumatic. The eyes were without lesions, ulcerations, or drainage. NECK: The trachea was midline. CARDIOVASCULAR: The heart rate was tachycardic, but the rhythm was regular. A systolic murmur was auscultated. The patient remains with 2+ edema to his bilateral lower extremities. S1 and S2 heart sounds were present. PULMONARY: Very decreased breath sounds were in the mid to lower ellis of the left lung. No wheezing was appreciated and occasional crackles were heard in the right lung. ABDOMEN: Soft. No tenderness was noted to palpation. The abdomen was distended. Bowel sounds were positive. EXTREMITIES: The patient was with 2+ pitting edema to both lower extremities, but there was no clubbing, cyanosis or erythema noted. LABORATORY DATA: Today's CBC shows the white count at 9.3, hemoglobin at 12.8, hematocrit at 38.9 and platelet count at 277. Today's chemistry shows sodium at 136, potassium at 3.7, chloride at 95, bicarbonate at 28, BUN at 21, creatinine at 5.69, glucose at 80, calcium was 9.2, phosphorus was 4.1, albumin was 3.5. IMPRESSION: 1. Left-sided pleural effusion, status post thoracentesis today with removal of approximately 1.9 liters of pleural fluid. 2. End-stage renal disease, on hemodialysis on Tuesdays, and Saturdays. 3. History of focal segmental glomerulosclerosis. 4. History of asthma. 5. History of congestive heart failure. 6. History of chronic pain. 7. History of depression. 8. History of seizure disorder. PLAN OF MANAGEMENT: Again today, a thoracentesis was performed with removal of approximately 1.9 liters of pleural fluid. The pleural fluid was sent for analysis and a followup chest x-ray was obtained. The patient is expected to undergo a paracentesis today as well and the Nephrology service is also following for his ESRD. [place], [place] PROGRESS NOTE NAME: JANICE COYLE UNIT #: [id number] ROOM: [facility] DOCTOR: ESTEVAN HANLEY DO BIRTHDATE: [birth year] Estevan Hanley DO OSORIO TROY MD CM:PNTRANS [id number] ESTEVAN HANLEY DO 07/03/18 1132 interface
--- NOTE | ~2018-07-01 | PROC NOTE ---
[place], [place] PROCEDURE NOTE NAME: JANICE COYLE UNIT #: [id number] ROOM: 403 DOCTOR: WOODROW LAIRD MD,OSORIO BIRTHDATE: [birth year] DOS: 07/03/2018 PREOPERATIVE DIAGNOSIS: Large recurrent left pleural fluid. POSTOPERATIVE DIAGNOSIS: Removal of 1900 mL pleural fluid from the left pleural space without any difficulty at bedside, sent for all the necessary testing. COMPLICATIONS: None. PROCEDURE DESCRIPTION: Informed consent obtained from the patient. The patient was placed in sitting position. The ultrasound of the chest was already done this morning again and the site of thoracentesis was marked. A 1% lidocaine was administered in the skin and intercostal space. During administration of local anesthetic. The needle entered into the pleural space. Small amount of fluid was aspirated. After that small incision given in the skin. [place] thoracentesis catheter introduced through the incision into the right pleural space without any difficulty. A total of 1900 mL of pleural fluid ____ sent for all the necessary testing. Procedure well tolerated. Chest x-ray done postprocedure, still shows small remaining fluid, evidence of finding of congestive heart failure, fluid noted in the right side. There was no pneumothorax. OSORIO TROY MD CM:PROCNOTE:PROCEDURE NOTE [id number] OSORIO LAIRD MD
--- NOTE | ~2018-07-01 | PR ---
[place], [place] PROGRESS NOTE NAME: JANICE COYLE UNIT #: [id number] ROOM: [place] [address] DOCTOR: OSORIO LABOY MD BIRTHDATE: [birth year] DOS: 07/04/2018 PULMONARY ADDENDUM NOTE SUBJECTIVE: The patient was independently seen and examined in [id number] encounter. History with the patient confirmed. Physical examination performed. All the labs were reviewed. The assessment and management personally made. The note done by the medical referral coordinator was approved as well. The patient has a thoracentesis done, large volume 1900 mL removed from the left pleural space yesterday successfully. He has been receiving hemodialysis today. The patient has been noted with mild cough, but there was no sputum expectoration with reported symptoms of chest pain, hemoptysis. The patient also assessed by the radiologist with small amount of peritoneal fluid was removed as well, but was noted with large quantity. He has not been noted any symptoms of dizziness, headache. Remaining systems were reviewed. They were noted all negative. PHYSICAL EXAMINATION: VITAL SIGNS: Temperature noted normal to 99.3 degrees Fahrenheit, respirations 17-20, heart rate of 126-132 with sinus tachycardia, blood pressure 173/90-150/97. Pulse oxygen saturation on 3 liters nasal cannula ranges between 87-92% saturation. HEENT: Examination shows head was atraumatic. Eyes nonicterus. NECK: Supple. CARDIOVASCULAR: S1, S2 is audible. LUNGS: The patient was noted with decreased breath sounds in the lungs bilaterally. ABDOMEN: Soft without any tenderness. Bowel sounds present. EXTREMITIES: No acute edema. SKIN: No lesions or rashes. MUSCULOSKELETAL: Without any acute deformities. LABORATORY DATA: Reviewed from yesterday, the analysis of pleural fluid that was done yesterday was noted with total WBC 632, RBC 1000, 93% lymphocytes. Remaining chemistry were noted consistent with transudative effusion and pH of the pleural fluid noted at 7.43. Culture of the pleural fluid was noted without any abnormal growth. There were no organisms seen. Culture remains pending. Renal function panel for today, BUN 34, creatinine 7.70. Culture of the sputum for the patient was noted from 07/02/2018 as normal alka. Gram stain of the pleural fluid was noted with many white blood cells without any organisms. Cytology was pending. IMPRESSION: 1. Large volume recurrent lymphocyte predominant transudative pleural effusion for the patient 2. Chronic inflammatory changes. 3. Glomerulonephrosis with end-stage renal failure, on hemodialysis. 4. Low grade fever. 5. Pulmonary venous congestion marked was also noted previously. [place], [place] PROGRESS NOTE NAME: JANICE COYLE UNIT #: [id number] ROOM: [place] [address] DOCTOR: WOODROW LAIRD MD,OSORIO BIRTHDATE: [birth year] PLAN OF MANAGEMENT: The patient will be recommended about transfer to [facility] for the VATS procedure of the left side to prevent the recurrent pleural fluid, which were noted large volume. The case was discussed with Dr. Griffith at [facility] for current surgical intervention. The information was also discussed with the patient to the resident, and Dr. Red Lester for the transfer. The arrangement will be made for transfer. In the meantime, continue current therapy, plan of management, and other care. Monitor all the cultures. OSORIO TROY MD CM:PNTRANS [id number] OSORIO LAIRD MD 07/17/18 0833 interface
--- NOTE | ~2018-07-01 | EKG ---
[place], [place] ELECTROCARDIOGRAM REPORT NAME: JANICE COYLE UNIT #: [id number] ROOM: [facility] DOCTOR: GOOD DRAFT REPORT BIRTHDATE: [birth year] [facility] Test Date: 2018-07-01 Test Time: 20:00:57 Pat Name: JANICE COYLE Department: Room: 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: ARCELIA : 1990 Requested By: PRANAV HYDE Order Number: [id number] Reading MD: Bird Sotomayor MD Measurements Intervals [place] Rate: 106 P: 36 DE: 208 QRS: 138 QRSD: 105 T: 34 QT: 347 QTc: 461 Interpretive Statements Sinus tachycardia Prolonged DE interval Probable left atrial enlargement Borderline low voltage, extremity leads Probable right ventricular hypertrophy Compared to ECG 05/06/2018 19:13:12 Sinus rhythm no longer present Electronically Signed On 07-02-2018 4:18:03 PDT by Bird Sotomayor MD CM:EKGRPT:ELECTROCARDIOGRAM REPORT 99 [id number] PRANAV YOUNG DRAFT REPORT PRANAV HYDE DO
[2018-07-01 19:38] VITALS: BP 178/114
[2018-07-01 20:41] LABS: ACT PARTIAL THROMBO TIME 27.9 SECONDS (20.8-31.5); INTERNATIONAL NORM RATIO 1.3 (2.0-3.5)
[2018-07-01 20:52] LABS: ALBUMIN 3.8 gm/dl (3.1-4.5); BUN 37 mg/dl (7-24); CHLORIDE 100 mmol/L (98-107); CREATININE 8.12 mg/dL (0.70-1.30); POTASSIUM 4.6 mmol/L (3.5-5.1); SGOT/AST 22 IU/L (3-35); SGPT/ALT 13 U/L (12-78); SODIUM 137 mmol/L (136-145); TOTAL PROTEIN 8.4 gm/dL (6.4-8.2)
[2018-07-01 20:54] LABS: ALKALINE PHOSPHATASE 145 U/L (45-117)
[2018-07-01 20:56] LABS: TROPONIN I < 0.015 ng/ml (<0.045)
[2018-07-01 21:00] VITALS: BP 160/92
[2018-07-01 21:42] LABS: BASO # 0.2 10*3/uL (0.0-0.1); BASO % 1.7 % (0.0-1.0); EOS # 0.2 10*3/uL (0.0-0.4); EOS % 2.5 % (1.0-4.0); HEMATOCRIT 37.3 % (42.0-52.0); HEMOGLOBIN 12.3 g/dl (14.0-18.0); LYMPH # 0.9 10*3/uL (1.3-4.4); MEAN CELL VOLUME 91.9 fl (80.0-94.0); MEAN CORPUSCULAR HGB 30.3 pg (27.0-31.0); MEAN PLATELET VOLUME 9.3 fl (9.6-12.3); MONO # 0.7 10*3/uL (0.1-1.0); MONO % 7.6 % (3.0-9.0); NEUT # 6.8 10*3/uL (2.3-7.9); PLATELET COUNT AUTOMATED 291 10*3/uL (130-400); RED BLOOD COUNT 4.06 10*6/uL (4.50-5.90); WHITE BLOOD COUNT 8.7 10*3/uL (4.8-10.8)
[2018-07-01 22:00] VITALS: BP 164/90
[2018-07-01 23:40] VITALS: BP 150/100
[2018-07-02 04:00] VITALS: BP 180/110
[2018-07-02 05:39] LABS: BASO # 0.1 10*3/uL (0.0-0.1); BASO % 1.5 % (0.0-1.0); EOS # 0.1 10*3/uL (0.0-0.4); EOS % 1.4 % (1.0-4.0); HEMATOCRIT 38.3 % (42.0-52.0); HEMOGLOBIN 12.4 g/dl (14.0-18.0); LYMPH # 0.7 10*3/uL (1.3-4.4); LYMPH % 8.3 % (27.0-41.0); MEAN CELL VOLUME 92.7 fl (80.0-94.0); MEAN CORPUSCULAR HGB CONC 32.4 g/dl (33.0-37.0); MONO # 0.6 10*3/uL (0.1-1.0); MONO % 7.4 % (3.0-9.0); NEUT # 6.3 10*3/uL (2.3-7.9); NEUT % 80.1 % (47.0-73.0); PLATELET COUNT AUTOMATED 265 10*3/uL (130-400); RED BLOOD COUNT 4.13 10*6/uL (4.50-5.90); RED CELL DISTRI WIDTH 13.1 % (0-14.5); WHITE BLOOD COUNT 7.9 10*3/uL (4.8-10.8)
[2018-07-02 06:01] LABS: ALBUMIN 3.4 gm/dl (3.1-4.5); CREATININE 8.62 mg/dL (0.70-1.30); FREE T4 1.36 ng/dl (0.76-1.46); PHOSPHOROUS 5.6 mg/dL (2.5-4.9); POTASSIUM 4.4 mmol/L (3.5-5.1); TOTAL PROTEIN 7.3 gm/dL (6.4-8.2)
[2018-07-02 06:05] LABS: THYROID STIM HORMONE (HS) 1.39 uIU/ml (0.358-4.75)
[2018-07-02 06:14] LABS: ACT PARTIAL THROMBO TIME 33.5 SECONDS (20.8-31.5); INTERNATIONAL NORM RATIO 1.4 (2.0-3.5)
[2018-07-02 07:46] LABS: VITAMIN D, 25-HYDROXY 11.7 ng/mL (30-100)
[2018-07-02 08:00] VITALS: BP 180/92
[2018-07-02] MEDS ORDERED: REGLAN5 MG PO (10:14)
[2018-07-02 12:00] VITALS: BP 210/123
[2018-07-02 16:00] VITALS: BP 180/80
[2018-07-02 20:00] VITALS: BP 156/98
[2018-07-03] VITALS (7 sets, daily range): BP systolic 140–180; BP diastolic 80–108
[2018-07-03 06:04] LABS: ALBUMIN 3.5 gm/dl (3.1-4.5); CREATININE 5.69 mg/dL (0.70-1.30); PHOSPHOROUS 4.1 mg/dL (2.5-4.9); POTASSIUM 3.7 mmol/L (3.5-5.1)
[2018-07-03 06:09] LABS: BASO # 0.2 10*3/uL (0.0-0.1); BASO % 1.7 % (0.0-1.0); EOS # 0.3 10*3/uL (0.0-0.4); EOS % 2.8 % (1.0-4.0); HEMATOCRIT 38.9 % (42.0-52.0); HEMOGLOBIN 12.8 g/dl (14.0-18.0); LYMPH # 0.9 10*3/uL (1.3-4.4); LYMPH % 9.6 % (27.0-41.0); MEAN CELL VOLUME 92.4 fl (80.0-94.0); MEAN CORPUSCULAR HGB 30.4 pg (27.0-31.0); MEAN CORPUSCULAR HGB CONC 32.9 g/dl (33.0-37.0); MEAN PLATELET VOLUME 9.3 fl (9.6-12.3); MONO # 1.3 10*3/uL (0.1-1.0); MONO % 13.9 % (3.0-9.0); NEUT # 6.7 10*3/uL (2.3-7.9); NEUT % 71.8 % (47.0-73.0); PLATELET COUNT AUTOMATED 277 10*3/uL (130-400); RED BLOOD COUNT 4.21 10*6/uL (4.50-5.90); RED CELL DISTRI WIDTH 12.9 % (0-14.5); WHITE BLOOD COUNT 9.3 10*3/uL (4.8-10.8)
[2018-07-03 10:07] LABS: BODY FLUID WBC 632 /uL
[2018-07-03 10:15] LABS: BF LYMPHOCYTES 93 %; BF MONOCYTES 3 %; BF NEUTROPHILS 1 %
[2018-07-04] VITALS: BP 173/90
[2018-07-04 06:41] VITALS: BP 159/82
[2018-07-04 06:46] LABS: ALBUMIN 3.2 gm/dl (3.1-4.5); CREATININE 7.7 mg/dL (0.70-1.30); PHOSPHOROUS 5.4 mg/dL (2.5-4.9); POTASSIUM 3.9 mmol/L (3.5-5.1)
[2018-07-04 08:00] VITALS: BP 158/97
[2018-07-04 12:00] VITALS: BP 150/92
[2018-07-04 13:12] LABS: HEMATOCRIT 37.2 % (42.0-52.0); HEMOGLOBIN 12.5 g/dl (14.0-18.0); MEAN CELL VOLUME 91.6 fl (80.0-94.0); MEAN CORPUSCULAR HGB 30.8 pg (27.0-31.0); MEAN CORPUSCULAR HGB CONC 33.6 g/dl (33.0-37.0); MEAN PLATELET VOLUME 8.6 fl (9.6-12.3); PLATELET COUNT AUTOMATED 220 10*3/uL (130-400); RED BLOOD COUNT 4.06 10*6/uL (4.50-5.90); WHITE BLOOD COUNT 15.7 10*3/uL (4.8-10.8)
[2018-07-04 13:27] LABS: ALBUMIN 3.2 gm/dl (3.1-4.5); CREATININE 3.64 mg/dL (0.70-1.30); PHOSPHOROUS 3.3 mg/dL (2.5-4.9); POTASSIUM 4.1 mmol/L (3.5-5.1)
[2018-07-04 13:32] LABS: PLATELET SUFFICIENCY NORMAL (NORMAL); TOTAL CELLS COUNTED 100 #CELLS
[2018-07-04 13:49] LABS: ABG HCO3 27.8 mmol/l (22-26); ABG O2 SATURATION 83.8 % (95-97); ARTERIAL BLOOD GAS PCO2 51.4 mmHg (35-45); ARTERIAL BLOOD GAS PH 7.353 (7.35-7.45); ARTERIAL BLOOD GAS PO2 49.8 mmHg (80-90)
== END 2018-07-04 15:37 | disposition short-term general hospital (02) | DRG 871 ==
LOC: ED 19:37 → ICCU 22:12 → EDHOLD 22:12 → ICCU 22:23 → 4E 07-03 13:59 → ICCU 07-04 13:45
PROVIDERS: Family Medicine; Internal Medicine; Internal Medicine Critical Care Medicine; Internal Medicine Nephrology; Student in an Organized Health Care Education/Training Program
PROC: 5A1D70Z Performance of Urinary Filtration, Intermittent, Less than 6 Hours Per Day (ICD-10-PCS; 2018-07-02)
PROC: 0W9B3ZZ Drainage of Left Pleural Cavity, Percutaneous Approach (ICD-10-PCS; 2018-07-03)
PROC: 5A1D70Z Performance of Urinary Filtration, Intermittent, Less than 6 Hours Per Day (ICD-10-PCS; principal; 2018-07-04)
PROC: 0BH17EZ Insertion of Endotracheal Airway into Trachea, Via Natural or Artificial Opening (ICD-10-PCS; 2018-07-04)
DX: A41.9 Sepsis, unspecified organism (principal); J81.0 Acute pulmonary edema; N18.6 End stage renal disease; J18.1 Lobar pneumonia, unspecified organism; R18.8 Other ascites; N03.2 Chronic nephritic syndrome with diffuse membranous glomerulonephritis; D68.9 Coagulation defect, unspecified; I13.2 Hypertensive heart and chronic kidney disease with heart failure and with stage 5 chronic kidney disease, or end stage renal disease; J90 Pleural effusion, not elsewhere classified; R74.8 Abnormal levels of other serum enzymes; E87.8 Other disorders of electrolyte and fluid balance, not elsewhere classified; G40.909 Epilepsy, unspecified, not intractable, without status epilepticus; F32.9 Major depressive disorder, single episode, unspecified; E53.8 Deficiency of other specified B group vitamins; K76.9 Liver disease, unspecified; E66.3 Overweight; E55.9 Vitamin D deficiency, unspecified; M54.9 Dorsalgia, unspecified; G89.29 Other chronic pain; J45.909 Unspecified asthma, uncomplicated; E11.22 Type 2 diabetes mellitus with diabetic chronic kidney disease; I50.9 Heart failure, unspecified; I36.1 Nonrheumatic tricuspid (valve) insufficiency; I27.20 Pulmonary hypertension, unspecified; I37.1 Nonrheumatic pulmonary valve insufficiency; K44.9 Diaphragmatic hernia without obstruction or gangrene; D63.8 Anemia in other chronic diseases classified elsewhere; K57.90 Diverticulosis of intestine, part unspecified, without perforation or abscess without bleeding; Z88.8 Allergy status to other drugs, medicaments and biological substances; Z79.899 Other long term (current) drug therapy; Q78.8 Other specified osteochondrodysplasias; Z99.2 Dependence on renal dialysis; Z83.3 Family history of diabetes mellitus; Z82.49 Family history of ischemic heart disease and other diseases of the circulatory system; Z68.26 Body mass index [BMI] 26.0-26.9, adult

== ENCOUNTER → 2018-10-02 | Outpatient (CLI) | payer OTHER | END | disposition home or self-care (01) | LOC: CARD 01:50 | DX: R01.1 Cardiac murmur, unspecified (principal) ==

== ENCOUNTER → 2019-01-23 | Outpatient (CLI) | payer OTHER | END | disposition home or self-care (01) | LOC: RAD 17:25 | DX: J90 Pleural effusion, not elsewhere classified (principal) ==

== ENCOUNTER 2019-03-29 17:44 | Emergency (ER) | payer OTHER ==
[~2019-03-29] VITALS: Wt 61.2 kg
== END 2019-03-29 19:13 | disposition home or self-care (01) ==
LOC: ED 17:44
DX: T78.1XXA Other adverse food reactions, not elsewhere classified, initial encounter (principal); R22.0 Localized swelling, mass and lump, head; R06.00 Dyspnea, unspecified; R11.2 Nausea with vomiting, unspecified; Z88.6 Allergy status to analgesic agent; Z88.8 Allergy status to other drugs, medicaments and biological substances; Z79.899 Other long term (current) drug therapy; Z99.2 Dependence on renal dialysis; Z87.448 Personal history of other diseases of urinary system; X58.XXXA Exposure to other specified factors, initial encounter

== ENCOUNTER 2020-01-17 05:39 | Emergency (ER) | payer OTHER ==
[~2020-01-17] VITALS: Ht 162.5 cm; Wt 90.7 kg
[2020-01-17] MEDS ORDERED: ROCALTROL0.5 MC1 PO (06:17)
[2020-01-17] MEDS ORDERED: REPLESTA50000 UNIT PO (06:18)
[2020-01-17] MEDS ORDERED: ONDANSETRON4 MG SL (06:21)
[2020-01-17] MEDS ORDERED: SENNA-LAX8.6 MG PO (06:21)
[2020-01-17] MEDS ORDERED: VALCYTE450 MG PO (06:22)
[2020-01-17] MEDS ORDERED: TACROLIMUS1 M1 PO (06:23)
[2020-01-17] MEDS ORDERED: BUMETANIDE2 MG PO (06:24)
[2020-01-17] MEDS ORDERED: BACTRIM 400-801 EACH PO (06:24)
[2020-01-17] MEDS ORDERED: PHARMASSURE V500 MCG PO (06:25)
[2020-01-17] MEDS ORDERED: Zaroxolyn,Diul2.5 MG PO (06:26)
[2020-01-17] MEDS ORDERED: NEPHRO-VITE TA0.8 MG PO (06:27)
[2020-01-17] MEDS ORDERED: NIFEDIPINE ER60 M1 PO (06:27)
[2020-01-17 07:11] LABS: HEMATOCRIT 29.6 % (42.0-52.0); HEMOGLOBIN 9.4 g/dl (14.0-18.0); MEAN CORPUSCULAR HGB 31.1 pg (27.0-31.0); MEAN CORPUSCULAR HGB CONC 31.8 g/dl (33.0-37.0); MEAN PLATELET VOLUME 10.1 fl (9.6-12.3); NUCLEATED RED BLOOD CELL 0.4 % (0.0-0.0); PLATELET COUNT AUTOMATED 220 10*3/uL (130-400); RED BLOOD COUNT 3.02 10*6/uL (4.50-5.90); RED CELL DISTRI WIDTH 19.4 % (0-14.5); WHITE BLOOD COUNT 9.5 10*3/uL (4.8-10.8)
[2020-01-17 07:22] LABS: ACT PARTIAL THROMBO TIME 38.2 SECONDS (20.0-32.1); INTERNATIONAL NORM RATIO 1.1 (2.0-3.5)
[2020-01-17 07:25] LABS: ALBUMIN 1.3 gm/dl (3.1-4.5); CREATININE 7.62 mg/dL (0.70-1.30); TOTAL PROTEIN 4.6 gm/dL (6.4-8.2)
[2020-01-17 07:28] LABS: POTASSIUM 6.1 mmol/L (3.5-5.1)
[2020-01-17 07:49] LABS: BASOPHILS 2 % (0-1); PLATELET SUFFICIENCY NORMAL (NORMAL); POLYCHROMASIA SLIGHT; TOTAL CELLS COUNTED 100 #CELLS
[2020-01-17 07:50] LABS: OVALOCYTES FEW; SCHISTOCYTES FEW
[2020-01-17 08:13] LABS: BACTERIA 2+; BILIRUBIN NEGATIVE (NEGATIVE); BLOOD TRACE-INTACT (NEGATIVE); CLARITY SL CLOUDY (CLEAR); COLOR YELLOW (YELLOW); GLUCOSE 2+ (NEGATIVE); KETONE NEGATIVE (NEGATIVE); LEUKO ESTERASE NEGATIVE (NEGATIVE); NITRITE NEGATIVE (NEGATIVE); PH 7.5 (5.0-9.0); RBC 31-40 rbc/hpf (0-2); UROBILINOGEN 0.2 E.U./dl (0.2-1.0); WBC 21-30 wbc/hpf (0-5)
[2020-01-17 08:14] LABS: HYALINE CAST 50-55
== END 2020-01-17 10:35 | disposition home or self-care (01) ==
LOC: ED 05:39
PROVIDERS: Emergency Medicine Emergency Medical Services
DX: I12.0 Hypertensive chronic kidney disease with stage 5 chronic kidney disease or end stage renal disease (principal); E11.22 Type 2 diabetes mellitus with diabetic chronic kidney disease; N18.6 End stage renal disease; R41.82 Altered mental status, unspecified; R51 Headache; R11.2 Nausea with vomiting, unspecified; E78.5 Hyperlipidemia, unspecified; Z99.2 Dependence on renal dialysis; Z79.899 Other long term (current) drug therapy; Z79.2 Long term (current) use of antibiotics

== ENCOUNTER 2020-01-18 18:27 | Emergency (ER) | payer OTHER ==
[~2020-01-18] VITALS: Ht 162.5 cm; Wt 84.4 kg
[~2020-01-18 18:27] MED LIST changes: +BACTRIM 400-801 EACH PO; +BUMETANIDE2 MG PO; +NEPHRO-VITE TA0.8 MG PO; +NIFEDIPINE ER60 M1 PO; +ONDANSETRON4 MG SL; +PHARMASSURE V500 MCG PO; +REPLESTA50000 UNIT PO; +ROCALTROL0.5 MC1 PO; +SENNA-LAX8.6 MG PO; +TACROLIMUS1 M1 PO; +VALCYTE450 MG PO; +Zaroxolyn,Diul2.5 MG PO
[2020-01-18 20:03] LABS: BASO # 0.1 10*3/uL (0.0-0.1); EOS % 0.1 % (1.0-4.0); HEMATOCRIT 27.4 % (42.0-52.0); HEMOGLOBIN 8.8 g/dl (14.0-18.0); LYMPH # 0.1 10*3/uL (1.3-4.4); LYMPH % 1.2 % (27.0-41.0); MEAN CELL VOLUME 98.2 fl (80.0-94.0); MEAN CORPUSCULAR HGB 31.5 pg (27.0-31.0); MEAN CORPUSCULAR HGB CONC 32.1 g/dl (33.0-37.0); MEAN PLATELET VOLUME 9.7 fl (9.6-12.3); MONO # 0.8 10*3/uL (0.1-1.0); NEUT % 85.8 % (47.0-73.0); NUCLEATED RED BLOOD CELL 0.3 % (0.0-0.0); RED BLOOD COUNT 2.79 10*6/uL (4.50-5.90); RED CELL DISTRI WIDTH 19.6 % (0-14.5); WHITE BLOOD COUNT 9.3 10*3/uL (4.8-10.8)
[2020-01-18 20:05] LABS: PLATELET COUNT AUTOMATED 322 10*3/uL (130-400)
[2020-01-18 20:07] LABS: ACT PARTIAL THROMBO TIME 32.8 SECONDS (20.0-32.1); INTERNATIONAL NORM RATIO 1.1 (2.0-3.5)
[2020-01-18 20:15] LABS: ALBUMIN 1.1 gm/dl (3.1-4.5); ALKALINE PHOSPHATASE 77 U/L (45-117); BUN 66 mg/dl (7-24); CHLORIDE 108 mmol/L (98-107); CREATININE 8.47 mg/dL (0.70-1.30); SGOT/AST 12 IU/L (3-35); SGPT/ALT 8 U/L (12-78); SODIUM 139 mmol/L (136-145); TOTAL PROTEIN 4.4 gm/dL (6.4-8.2)
[2020-01-18 20:23] LABS: POTASSIUM 6.8 mmol/L (3.5-5.1); TROPONIN I < 0.015 ng/ml (<0.045)
== END 2020-01-18 22:55 ==
LOC: ED 18:27
PROVIDERS: Emergency Medicine
DX: N17.9 Acute kidney failure, unspecified (principal); E87.5 Hyperkalemia; G40.909 Epilepsy, unspecified, not intractable, without status epilepticus; R11.2 Nausea with vomiting, unspecified; R19.7 Diarrhea, unspecified; R10.32 Left lower quadrant pain; R22.31 Localized swelling, mass and lump, right upper limb; E11.22 Type 2 diabetes mellitus with diabetic chronic kidney disease; I13.2 Hypertensive heart and chronic kidney disease with heart failure and with stage 5 chronic kidney disease, or end stage renal disease; N18.6 End stage renal disease; I50.9 Heart failure, unspecified; E78.5 Hyperlipidemia, unspecified; J45.909 Unspecified asthma, uncomplicated; G89.29 Other chronic pain; Z94.0 Kidney transplant status; Z99.2 Dependence on renal dialysis; Z88.8 Allergy status to other drugs, medicaments and biological substances; Z79.899 Other long term (current) drug therapy

== ENCOUNTER 2020-06-04 23:40 | Emergency (ER) | payer OTHER ==
[~2020-06-04] VITALS: Wt 66.3 kg
[2020-06-05 01:06] LABS: HEMATOCRIT 33.5 % (42.0-52.0); MEAN CELL VOLUME 100.6 fl (80.0-94.0); MEAN CORPUSCULAR HGB 33.3 pg (27.0-31.0); MEAN CORPUSCULAR HGB CONC 33.1 g/dl (33.0-37.0); MEAN PLATELET VOLUME 9.7 fl (9.6-12.3); PLATELET COUNT AUTOMATED 236 10*3/uL (130-400); RED BLOOD COUNT 3.33 10*6/uL (4.50-5.90); RED CELL DISTRI WIDTH 13.5 % (0-14.5); WHITE BLOOD COUNT 4.3 10*3/uL (4.8-10.8)
[2020-06-05 01:17] LABS: ACT PARTIAL THROMBO TIME 27.5 SECONDS (20.0-32.1); INTERNATIONAL NORM RATIO 1.2 (2.0-3.5)
[2020-06-05 01:20] LABS: VENOUS BLOOD GAS O2 SAT 63.2 % (40-85); VENOUS PH 7.334 (7.32-7.43)
[2020-06-05 01:24] LABS: ALBUMIN 3.4 gm/dl (3.1-4.5); CREATININE 10.2 mg/dL (0.70-1.30); POTASSIUM 5.8 mmol/L (3.5-5.1); TOTAL PROTEIN 5.9 gm/dL (6.4-8.2)
[2020-06-05 01:25] LABS: TROPONIN I 0.026 ng/ml (<0.045)
[2020-06-05 01:26] LABS: BASOPHILS 1 % (0-1); PLATELET SUFFICIENCY NORMAL (NORMAL); TOTAL CELLS COUNTED 100 #CELLS
[2020-06-05 01:27] LABS: OVALOCYTES FEW
== END 2020-06-05 03:16 | disposition short-term general hospital (02) ==
LOC: ED 23:40
PROVIDERS: Emergency Medicine Emergency Medical Services
DX: G40.909 Epilepsy, unspecified, not intractable, without status epilepticus (principal); R41.82 Altered mental status, unspecified; I13.2 Hypertensive heart and chronic kidney disease with heart failure and with stage 5 chronic kidney disease, or end stage renal disease; E11.22 Type 2 diabetes mellitus with diabetic chronic kidney disease; N18.6 End stage renal disease; J45.909 Unspecified asthma, uncomplicated; E87.5 Hyperkalemia; Z99.2 Dependence on renal dialysis; Z88.8 Allergy status to other drugs, medicaments and biological substances; Z79.899 Other long term (current) drug therapy

== ENCOUNTER 2020-10-07 06:00 | Emergency (ER) | payer OTHER ==
[~2020-10-07] VITALS: Ht 165.1 cm; Wt 68.0 kg
[2020-10-07 06:29] LABS: BASO % 0.7 % (0.0-1.0); EOS # 0.2 10*3/uL (0.0-0.4); EOS % 2.5 % (1.0-4.0); HEMATOCRIT 35.6 % (42.0-52.0); LYMPH # 0.3 10*3/uL (1.3-4.4); LYMPH % 4.8 % (27.0-41.0); MEAN CORPUSCULAR HGB 28.3 pg (27.0-31.0); MEAN CORPUSCULAR HGB CONC 32.9 g/dl (33.0-37.0); MEAN PLATELET VOLUME 9.4 fl (9.6-12.3); MONO # 0.6 10*3/uL (0.1-1.0); MONO % 9.9 % (3.0-9.0); NEUT # 4.9 10*3/uL (2.3-7.9); NEUT % 80.8 % (47.0-73.0); PLATELET COUNT AUTOMATED 225 10*3/uL (130-400); RED BLOOD COUNT 4.14 10*6/uL (4.50-5.90); RED CELL DISTRI WIDTH 14.9 % (0-14.5); WHITE BLOOD COUNT 6.1 10*3/uL (4.8-10.8)
[2020-10-07 06:44] LABS: ALBUMIN 3.6 gm/dl (3.1-4.5); CREATININE 9.93 mg/dL (0.70-1.30); POTASSIUM 4.4 mmol/L (3.5-5.1); TOTAL PROTEIN 6.8 gm/dL (6.4-8.2)
== END 2020-10-07 08:56 | disposition home or self-care (01) ==
LOC: ED 06:00
PROVIDERS: Internal Medicine
DX: E11.649 Type 2 diabetes mellitus with hypoglycemia without coma (principal); G40.909 Epilepsy, unspecified, not intractable, without status epilepticus; E11.22 Type 2 diabetes mellitus with diabetic chronic kidney disease; I12.0 Hypertensive chronic kidney disease with stage 5 chronic kidney disease or end stage renal disease; N18.6 End stage renal disease; E78.5 Hyperlipidemia, unspecified; Z88.8 Allergy status to other drugs, medicaments and biological substances; Z79.899 Other long term (current) drug therapy

== ENCOUNTER → 2020-11-05 | Outpatient (CLI) | payer OTHER | END | disposition home or self-care (01) | LOC: COVID19 10:37 | PROVIDERS: ATTEND Internal Medicine | DX: Z20.822 Contact with and (suspected) exposure to COVID-19 (principal) ==